=== PATIENT | male | born 1945 | race Caucasian/White ===

== ENCOUNTER 2017-10-30 10:25 | Emergency (ER) | payer MEDICARE, SELFPAY ==
[2017-10-30 10:31] VITALS: BP 105/67; PULSE 70; RESP 18; TEMP 36.4; O2SAT 96
--- NOTE | 2017-10-30 10:47 | DI.RAD.S_ITS ---
PROCEDURE: XR CHEST 1V INDICATIONS: 72 year-old male with chest pain. TECHNIQUE: One view of the chest was acquired. COMPARISON: [facility], CHEST 2 VIEW, 02/05/2017, 9:23. [facility], , ABDOMEN ACUTE SERIES, 02/16/2015, 17:48. [facility], CHEST 2 VIEW, 03/10/2010, 18:52. FINDINGS: Surgical changes and devices: Left chest wall single lead pacemaker is again noted. Lungs and pleura: No pleural effusions or pneumothorax. Lungs are clear. Mediastinum: Mediastinal contours appear normal. Heart size is normal given AP technique. Bones and chest wall: No suspicious bony lesions. Overlying soft tissues appear unremarkable. IMPRESSION: No acute cardiopulmonary disease. Dictated by: Eric Chadwick M.D. on 10/30/2017 at 11:30 Approved by: Eric Chadwick M.D. on 10/30/2017 at 11:31
[2017-10-30 11:33] VITALS: BP 111/70; PULSE 70; RESP 19; O2SAT 98
[2017-10-30 11:38] LABS: Add Manual Diff / Slide Review NO; Eosinophils Percent Auto 2.8 % (2-4); Hematocrit 43.5 % (41-53); Hemoglobin 14.9 g/dL (13.5-17.5); Lymphocytes Percent Auto 29.3 % (25-40); Mean Corpuscular HGB Conc 34.3 % (30-36); Mean Corpuscular Hemoglobin 31.8 PG (26-34); Mean Corpuscular Volume 92.8 fL (80-100); Monocytes Percent Auto 12.6 % (3-14); Neutrophils Absolute Auto 3100 /uL (3000-5900); Neutrophils Percent Auto 54.3 % (50-75); Platelet Count 135 X10^3/uL (150-400); Red Blood Cell Count 4.69 X10^6/uL (4.5-5.9); White Blood Cell Count 5.8 X10^3/uL (4.5-11.0)
[2017-10-30 11:44] LABS: INR 1.2 (0.9-1.3); Prothrombin Time 13.4 SECONDS (10.1-12.7)
[2017-10-30 11:46] LABS: PTT Partial Thromboplastin Tim 35 SECONDS (26.4-36.2)
[2017-10-30 11:49] LABS: Alanine Aminotransferase 25 IU/L (21-72); Albumin 4.1 g/dL (3.5-5.0); Albumin Globulin Ratio 1.3 (1.0-2.8); Alkaline Phosphatase 58 U/L (38-126); Aspartate Aminotransferase 30 IU/L (17-59); BUN Creatinine Ratio 21.4 (6-22); Bilirubin Total 0.7 mg/dL (0.2-1.3); Blood Urea Nitrogen 15 mg/dL (9-20); Calcium 9.3 mg/dL (8.4-10.2); Carbon Dioxide 24 mmol/L (22-32); Chloride 105 mmol/L (98-107); Creatine Kinase 82 U/L (55-170); Estimated Glomerular Filt Rate > 60.0 mL/min (>60); Globulin 3.1 g/dL (1.7-4.1); Glucose 97 mg/dL (80-110); HEMOLYSIS 75 (0-50); Lipase 65 U/L (23-300); Potassium 4.3 mmol/L (3.4-5.1); Sodium 141 mmol/L (137-145); Total Protein 7.2 g/dL (6.3-8.2)
[2017-10-30 12:00] LABS: Troponin I 0.014 ng/mL (0.01-0.034)
--- NOTE | 2017-10-30 12:40 | ED.CHESTPAIN ---
HPI - Chest Pain General Chief Complaint: Chest Pain Stated Complaint: CORNARY? Time Seen by Provider: 10/30/17 10:47 Source: patient Mode of arrival: ambulatory Limitations: no limitations History of Present Illness HPI narrative: Patient is a 72-year-old male who presents with chest pain. It started while cough walking. He said it lasted for about 10 min but did not stop until he stopped walking. He has not had recurrence of pain and when all across his chest. He denies any shortness of breath. He states he does have a pacemaker but is for atrial fibrillation. No known history of coronary artery disease. MD complaint: chest pain Onset (ago): minute(s) Duration: now resolved Onset: during exertion Relieving factors: rest Exacerbating factors: exertion Related Data Home Medications Medication Instructions Recorded Confirmed levothyroxine 150 mcg PO QAM #0 02/05/17 10/30/17 Eliquis 1 tab PO BID 10/30/17 10/30/17 citalopram 40 mg PO DAILY 10/30/17 10/30/17 omeprazole 20 mg PO BID 10/30/17 10/30/17 sucralfate 1 gm PO ACHS PRN 10/30/17 10/30/17 Previous Rx's Medication Instructions Recorded amlodipine 10 mg PO QDAY #90 tab 05/05/17 bupropion HCl [Wellbutrin XL] 150 mg PO QDAY #30 tab 05/05/17 lisinopril 40 mg PO BID #60 tab 05/05/17 Review of Systems Review of Systems All systems reviewed & are unremarkable except as noted in HPI and below Constitutional Denies chills, Denies fever(s), Denies lethargy and Denies weakness Cardiovascular Denies chest pain, Denies irregular heart rhythm, Denies lightheadedness, Denies palpitations, Denies dyspnea, Denies dyspnea on exertion and Denies orthopnea Respiratory Denies cough, Denies dyspnea, Denies dyspnea on exertion and Denies wheezing Gastrointestinal Gastrointestinal: Denies abdominal pain, Denies change in bowel habits, Denies diarrhea, Denies nausea and Denies vomiting Integumentary/Breasts Denies pruritus, Denies erythema, Denies rash and Denies wounds Neurologic Denies weakness Endocrine Denies palpitations Allergic/Immunologic Denies wheezing PFSH Surgical History History of vasectomy Presence of cardiac pacemaker Status post appendectomy Status post cholecystectomy Social History Smoking Status: Former smoker Exam Initial Vital Signs Initial Vital Signs: Vital Signs Temperature 97.5 F L 10/30/17 10:31 Pulse Rate 70 10/30/17 10:31 Respiratory Rate 18 10/30/17 10:31 Blood Pressure 105/67 10/30/17 10:31 Pulse Oximetry 96 10/30/17 10:31 Const General: cooperative and well developed Nutritional Appearance: well nourished Orientation: alert, awake, oriented x3 and not confused Chest Chest: normal inspection of the chest Resp Effort & Inspection: normal respiratory effort, able to speak in complete sentences, no respiratory distress and no use of accessory muscles Auscultation: clear to auscultation bilaterally, no rales, no rhonchi and no wheezes Cardio Rate: regular rate Rhythm: regular rhythm Heart Sounds: no click, no gallops, no murmurs and no rubs Pulses: normal peripheral pulses Skin General: no rashes or lesions noted, No jaundice and No petechiae Neuro General: alert, oriented x3, gait normal and no focal motor deficits Speech: speech normal Scores HEART Score Heart Score history: Moderately Suspicious Heart Score EKG: Normal Heart Score Age: > or = 65 years old Heart Score risk factors: 1-2 risk factors Heart Score troponin: < or = to normal limit Heart Score Total: 4 Course Orders Ordered: ED Orders 10/30/17 10:47 XR chest 1V Stat EKG-12 Lead Stat 10/30/17 11:25 B Type Natriuretic Peptide Stat Complete Blood Count AUTO DIFF Stat Comprehensive Metabolic Panel Stat Lipase Stat Partial Thromboplastin Time Stat Prothrombin Time INR Stat Troponin with CK Cardiac Panel Stat 10/30/17 14:00 Troponin I Stat Vital Signs - 8 hr 10/30/17 10:31 10/30/17 11:33 10/30/17 13:00 Temperature 97.5 F L Pulse Rate 70 70 70 Respiratory Rate 18 19 20 Blood Pressure 105/67 Blood Pressure [Right Arm] 111/70 108/76 Pulse Oximetry 96 98 97 10/30/17 13:50 10/30/17 14:50 10/30/17 15:11 Temperature Pulse Rate 70 70 70 Respiratory Rate 69 H 22 16 Blood Pressure Blood Pressure [Right Arm] 113/76 129/81 H 103/78 Pulse Oximetry 99 97 96 MDM - Chest Pain Lab Data Attestation: I reviewed the patient's lab results. Result diagrams: 10/30/17 11:25 10/30/17 11:25 Lab Results 10/30/17 10/30/17 10/30/17 Range/Units 11:25 11:25 11:25 WBC 5.8 (4.5-11.0) X10^3/uL RBC 4.69 (4.5-5.9) X10^6/uL Hgb 14.9 (13.5-17.5) g/dL Hct 43.5 (41-53) % MCV 92.8 (80-100) fL MCH 31.8 (26-34) PG MCHC 34.3 (30-36) % RDW 14.0 (11.6-14.8) % Plt Count 135 L (150-400) X10^3/uL Neut % (Auto) 54.3 (50-75) % Lymph % (Auto) 29.3 (25-40) % [place] % (Auto) 12.6 (3-14) % Eos % (Auto) 2.8 (2-4) % Baso % (Auto) 1.0 (0-2) % Neut # (Auto) 3100 (4045-7555) /uL PT 13.4 H (10.1-12.7) SECONDS INR 1.2 (0.9-1.3) APTT 35 (26.4-36.2) SECONDS Sodium 141 (137-145) mmol/L Potassium 4.3 (3.4-5.1) mmol/L Chloride 105 (98-107) mmol/L Carbon Dioxide 24 (22-32) mmol/L BUN 15 (9-20) mg/dL Creatinine 0.70 (0.66-1.25) mg/dL Estimated GFR > 60.0 (>60) mL/min BUN/Creatinine Ratio 21.4 (6-22) Glucose 97 (80-110) mg/dL Calcium 9.3 (8.4-10.2) mg/dL Total Bilirubin 0.7 (0.2-1.3) mg/dL AST 30 (17-59) IU/L ALT 25 (21-72) IU/L Alkaline Phosphatase 58 (38-126) U/L Total Creatine Kinase 82 (55-170) U/L Troponin I 0.014 (0.01-0.034) ng/mL B-Natriuretic Peptide 51.4 (<100) Total Protein 7.2 (6.3-8.2) g/dL Albumin 4.1 (3.5-5.0) g/dL Globulin 3.1 (1.7-4.1) g/dL Albumin/Globulin Ratio 1.3 (1.0-2.8) Lipase 65 (23-300) U/L 10/30/17 Range/Units 14:00 WBC (4.5-11.0) X10^3/uL RBC (4.5-5.9) X10^6/uL Hgb (13.5-17.5) g/dL Hct (41-53) % MCV (80-100) fL MCH (26-34) PG MCHC (30-36) % RDW (11.6-14.8) % Plt Count (150-400) X10^3/uL Neut % (Auto) (50-75) % Lymph % (Auto) (25-40) % [place] % (Auto) (3-14) % Eos % (Auto) (2-4) % Baso % (Auto) (0-2) % Neut # (Auto) (3699-1660) /uL PT (10.1-12.7) SECONDS INR (0.9-1.3) APTT (26.4-36.2) SECONDS Sodium (137-145) mmol/L Potassium (3.4-5.1) mmol/L Chloride (98-107) mmol/L Carbon Dioxide (22-32) mmol/L BUN (9-20) mg/dL Creatinine (0.66-1.25) mg/dL Estimated GFR (>60) mL/min BUN/Creatinine Ratio (6-22) Glucose (80-110) mg/dL Calcium (8.4-10.2) mg/dL Total Bilirubin (0.2-1.3) mg/dL AST (17-59) IU/L ALT (21-72) IU/L Alkaline Phosphatase (38-126) U/L Total Creatine Kinase (55-170) U/L Troponin I 0.020 (0.01-0.034) ng/mL B-Natriuretic Peptide (<100) Total Protein (6.3-8.2) g/dL Albumin (3.5-5.0) g/dL Globulin (1.7-4.1) g/dL Albumin/Globulin Ratio (1.0-2.8) Lipase (23-300) U/L ECG Data Attestation: I personally reviewed and interpreted this ECG as follows: Prior ECG tracings: available for review Interpretation: Paced rhythm rate [address] changes similar to previous EKG MDM Narrative Medical decision making narrative: I have called and spoken with patient's primary care provider. Recommend outpatient stress test. He will work on arranging that and will follow up with patient sometime next week. Patient is instructed that if you should have any return or worsening chest pain her to return to the ED immediately. He understands this. Discharge Plan Departure Patient Disposition: Home, Self-Care Clinical Impression: Atypical chest pain Discharge Date/Time: 10/30/17 15:31 Interventions: ED Discharge Assessment Last Done: 10/30/17 15:31 Instructions: DI for Atypical Chest Pain Activity Restrictions/Additional Instructions: *You have been diagnosed with atypical chest pain *What to do: He will likely need further cardiac testing and evaluation please speak with your primary care provider about this. He has been notified. *Continue to take medications as directed *Follow up with your primary care provider in 2-3 days *Return to ER if you should have increasing chest pain recurrent chest pain, worsening shortness of breath or any new, worsening or concerning symptoms Prescriptions: No Action levothyroxine 150 MCG tablet 150 mcg PO QAM Qty: 0 RF: 0 amlodipine 10 MG tablet 10 mg PO QDAY Qty: 90 RF: 3 lisinopril 40 MG tablet 40 mg PO BID Qty: 60 RF: 3 bupropion HCl [Wellbutrin XL] 150 MG tablet extended release 24 hr 150 mg PO QDAY Qty: 30 RF: 3 citalopram 40 mg tablet 40 mg PO DAILY RF: 0 omeprazole 20 mg capsule,delayed release(DR/EC) 20 mg PO BID RF: 0 Eliquis 1 tab PO BID RF: 0 sucralfate 1 GM tablet 1 gm PO ACHS PRN (Reason: STOMACH) RF: 0 Referrals: Ildefonso Whyte MD [Primary Care Provider] -
[2017-10-30 12:44] LABS: B Type Natriuretic Peptide 51.4 (<100)
[2017-10-30 13:00] VITALS: BP 108/76; PULSE 70; RESP 20; O2SAT 97
[2017-10-30 13:50] VITALS: BP 113/76; PULSE 70; RESP 69; O2SAT 99
[2017-10-30 14:50] VITALS: BP 129/81; PULSE 70; RESP 22; O2SAT 97
[2017-10-30 15:11] VITALS: BP 103/78; PULSE 70; RESP 16; O2SAT 96
== END 2017-10-30 15:31 | disposition home or self-care (01) ==
PROVIDERS: Emergency Provider Emergency Medicine; PCP Internal Medicine
DX: R07.89 Other chest pain (principal)
CPT/HCPCS: 36415; 36591; 71045; 80053; 82550; 82553; 83690; 83880; 84484; 85025; 85610; 85730; 93005; 99283; 99285

== ENCOUNTER → 2017-11-06 14:08 | Outpatient (CLI) | payer MEDICARE, SELFPAY ==
--- NOTE | 2017-11-06 15:22 | PM.TREADMILL ---
Cardiac Stress Test Report Referral & Results Date Patient Seen: 11/06/17 Time Patient Seen: 15:23 Requesting provider: Ildefonso Whyte Indication: Chest pain, ER visit Rest EC% paced rhythm with a left bundle branch block pattern Procedure Note: After both written and verbal informed consent the patient had an IV started by the diagnostic imaging RN and then was hooked up to the treadmill monitoring system. The patient was then injected with the Dorothy scan material. The Cardiolite was then immediately administered. Additional 3 min is spent monitoring the patient. The patient had a normal response to all infused materials. Impression: Normal response to infuse materials. Perfusion imaging will be reported separately. Please note: Actual ECG tracings can be found in the PACS system.
--- NOTE | 2017-11-09 15:50 | DI.NM.S_ITS ---
DATE OF SERVICE: 11/06/2017 PROCEDURE: Pharmacological perfusion study. INDICATIONS: Chest pain with underlying atrial fibrillation, permanent pacemaker. RADIOPHARMACEUTICAL: 26.3 mCi technetium-99m Myoview IV was injected at stress and 24.9 mCi technetium-99m Myoview IV was injected at rest. CARDIAC STRESS: Patient received IV Lexiscan as per protocol under the supervision of an attending staff. Patient remained hemodynamically stable. No significant symptoms were reported. Baseline EKG revealed ventricular-pace rhythm. Stress EKG did not reveal any new ischemic changes or new significant arrhythmias. RAW DATA: There was increased subdiaphragmatic activity. GATED STUDY: Resting stress LV ejection fraction about 72%. I don't see any significant wall motion abnormalities. No transient ischemic dilatation. TID ratio is 0.98, which is within normal limits. Resting LV end-diastolic volume is 119 mL. Lung/heart ratio is 0.42. MYOCARDIAL PERFUSION SCAN: Stress supine, resting supine, and stress prone images were compared to each other. Resting supine images revealed moderate- sized severely decreased perfusion of distal inferior wall extending into the inferoapex as well as mildly decreased perfusion of distal anterolateral and distal inferolateral wall. During stress supine and stress prone images, in addition to resting defect, there was new moderate-sized moderately severe reversible defect of the base-to-mid inferior wall as well. CONCLUSION: This is an abnormal myocardial perfusion study with moderate-sized severe reversible ischemia of base-to-mid inferior wall as well as fixed defect involving the distal inferior wall, inferoapex extending into the distal anterolateral and distal inferolateral wall. There is a possibility of distal inferior wall, inferoapex, and distal anterolateral and inferolateral infarction with reversible ischemia of base-to-mid inferior wall. Patient had perfusion study in 12/2000. At that time there was very slight decreased perfusion of proximal inferior wall. Since then, patient has had pacemaker. As wall motion evaluation did not reveal any significant abnormalities in the inferior wall, and overall left ventricular (LV) function preserved. Some of the fixed defects could be due to some diaphragmatic tissue attenuation artifact. However, reversible defect in base-to-mid inferior painter raises significant suspicion for underlying coronary artery disease as well. Patient's weight is 245 pounds. Likelihood that we are dealing with right coronary artery disease based on above description is high. Reversible defect is a new finding. Will recommend cardiology evaluation and left heart catheterization if patient is having recurrent anginal symptoms. Dr. Whyte office is informed. Thong, Bruce - BJORN/eliceo/ doc#: [id number]/job#: [id number] dd: 11/09/2017 12:55:00 dt: 11/09/2017 15:22:00 DICTATING MD/COPIES TO: Elvis Trent MD; Ildefonso Whyte MD COPIES MNE: ALFREDA RAYA
== END ==
PROVIDERS: PCP Internal Medicine; Visit Provider Internal Medicine
DX: R07.9 Chest pain, unspecified (principal); I48.91 Unspecified atrial fibrillation; Z95.0 Presence of cardiac pacemaker; I25.9 Chronic ischemic heart disease, unspecified
CPT/HCPCS: 78452; 93016; 93017; 93018; A9502; J2785

== ENCOUNTER 2018-05-03 10:00 | Outpatient (RCR) | payer OTHER, SELFPAY ==
[2018-01-19 09:21] VITALS: BP 116/80; BP 118/60; O2SAT 94; BMI 33.9
[2018-02-16 15:20] VITALS: BP 106/72; RESP 16
[2018-03-15 11:50] VITALS: BP 110/70
[2018-04-14 08:00] VITALS: BP 112/82; RESP 16
[2018-05-06 07:40] VITALS: BP 114/76
== END 2018-05-13 09:40 ==
LOC: CAR 10:00
PROVIDERS: PCP Internal Medicine; Visit Provider Internal Medicine
DX: I25.118 Atherosclerotic heart disease of native coronary artery with other forms of angina pectoris (principal)
CPT/HCPCS: 93798

== ENCOUNTER 2019-02-21 20:22 | Emergency (ER) | payer MEDICARE, SELFPAY ==
[2019-02-21 20:24] VITALS: BP 133/80; PULSE 83; RESP 14; TEMP 36.5; O2SAT 97
[2019-02-21 20:49] LABS: Amorphous Sediment Urine 1+; Bacteria Urine Few (2-10); Culture Indicated Urine Specimen Cultured; RBC Urine >100/HPF (0-5/HPF); WBC Urine 5-10/HPF (0-5/HPF)
--- NOTE | 2019-02-21 21:11 | ED_ITS ---
HPI - Abdominal Pain General Chief Complaint: Abdominal Pain Stated Complaint: KIDNEY STONES Time Seen by Provider: 02/21/19 21:03 Source: patient Mode of arrival: Ambulatory Limitations: no limitations History of Present Illness HPI narrative: Patient is a 73-year-old male here for evaluation of bilateral lower abdominal pain. He states that for the past couple days he has had dysuria. Denies any flank pain. Does have a history of a kidney stone but that was approximately 20 years ago. Denies any fevers. Is on Eliquis. No blood in his urine. Patient states his symptoms is bilateral lower abdomen. Is colicky in nature however when the symptoms are at its highest he does state that is worse with palpation and movement. Related Data Home Medications Medication Instructions Recorded Confirmed levothyroxine 150 mcg PO QAM #0 02/05/17 05/31/18 citalopram 40 mg PO DAILY 10/30/17 05/31/18 omeprazole 20 mg PO BID 10/30/17 05/31/18 clopidogrel 75 mg tablet 75 mg PO DAILY 03/22/18 05/31/18 Eliquis 5 mg PO BID 05/31/18 05/31/18 Previous Rx's Medication Instructions Recorded amlodipine 10 mg PO QDAY #90 tab 05/05/17 bupropion HCl [Wellbutrin XL] 150 mg PO QDAY #30 tab 05/05/17 lisinopril 40 mg tablet 40 mg PO DAILY #90 tab 03/22/18 simvastatin 20 mg tablet 20 mg PO QPM #30 tab 04/12/18 tamsulosin [Flomax] 0.4 mg PO DAILY #30 cap 02/21/19 Allergies Allergy/AdvReac Type Severity Reaction Status Date / Time atorvastatin AdvReac Intermediate myalgia Verified 02/21/19 20:27 rosuvastatin [From Crestor] AdvReac Intermediate myalgia Verified 02/21/19 20:27 Review of Systems Constitutional Constitutional: Denies fever(s) Cardiovascular Cardiovascular: Denies chest pain and Denies dyspnea Respiratory Respiratory: Denies dyspnea Gastrointestinal Gastrointestinal: Reports abdominal pain, Denies nausea and Denies vomiting Genitourinary Genitourinary: Reports dysuria, Denies flank pain, Denies testicular mass, Denie s testicular pain, Reports urinary frequency and Reports urinary hesitancy Musculoskeletal Musculoskeletal: Denies myalgias and Denies arthralgias Integumentary/Breasts Skin/Breast: Denies lesions and Denies rash Neurologic Neurologic: Denies behavioral changes Psychiatric Psychiatric: Denies behavioral changes Hematologic/Lymphatic Hematologic/Lymphatic: Denies easy bleeding and Denies easy bruising [facility] Medical History Acquired hypothyroidism (Chronic 08/09/12) Cardiac arrhythmia (Chronic) Central retinal artery occlusion of left eye (Inactive 02/27/17) Chronic atrial fibrillation (Chronic 02/22/15) Colon polyps (Chronic) Coronary artery disease (Chronic ~10/2017) Essential hypertension (Chronic 02/27/17) Gastroesophageal reflux disease without esophagitis (Chronic 08/09/12) History of permanent cardiac pacemaker placement (Inactive 02/22/15) Social History marital status: number of children: 3 household members: spouse lives independently: Yes caregiver/support person: No housing: house pets and animals: Yes education level: college (2 years) occupational status: other (Retired) 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[employer]: [employer] travel history: recent ([place]) and over 6 months ago ([place]) leisure activities: other ([employer]ilting) Smoking Status: Former smoker Tobacco: How many years used: 32 Smokeless tobacco user: other (Cigarettes, Marijuana) quit status: quit date established (Cigarettes 1985, Marijuana 1982) second hand exposure: No alcohol intake: former substance use type: does not use Exam Initial Vital Signs Initial Vital Signs: Vital Signs Temperature 97.7 F 02/21/19 20:24 Pulse Rate 83 02/21/19 20:24 Respiratory Rate 14 02/21/19 20:24 Blood Pressure 133/80 02/21/19 20:24 Pulse Oximetry 97 02/21/19 20:24 Const General: cooperative, comfortable and well developed Orientation: alert, awake and oriented x3 HENMT Head: normal to inspection and normocephalic Resp Effort & Inspection: normal respiratory effort Auscultation: clear to auscultation bilaterally Cardio Rate: regular rate Rhythm: regular rhythm GI Inspection: non-distended Palpation: soft, No firm and No tender Skin Lesions: no lesions Rashes: no rashes Neuro General: alert, awake and oriented x3 Cognition: normal cognition Speech: speech normal Gait: normal gait Motor: muscle tone normal throughout Extrem General: capillary refill normal Psych Appearance: grossly normal and well kempt Course Orders Ordered: ED Orders 02/21/19 18:35 Urine Culture Stat Urine Microscopic Stat 02/21/19 21:12 CT abdomen pelvis w con Stat 02/21/19 21:20 Complete Blood Count AUTO DIFF Stat Comprehensive Metabolic Panel Stat Lipase Stat Discontinued Medications Sodium Chloride (Normal Saline 0.9%) 1,000 mls @ 1,000 mls/hr IV BOLUS ONE Stop: 02/21/19 22:11 Last Infusion: 02/21/19 23:31 Dose: 0 mls/hr Documented by: Admin: 02/21/19 22:00 Dose: 1,000 mls/hr Documented by: NUSRAT Vital Signs Vital signs: Vital Signs - 8 hr 02/21/19 20:24 02/21/19 23:44 Temperature 97.7 F 97.9 F Pulse Rate 83 65 Respiratory Rate 14 14 Blood Pressure 133/80 127/71 Pulse Oximetry 97 MDM - Abdominal Pain Lab Data Attestation: I reviewed the patient's lab results. Result diagrams: 02/21/19 21:20 02/21/19 21:20 Labs: Lab Results 02/21/19 02/21/19 02/21/19 Range/Units 18:35 21:20 21:20 WBC 7.6 (4.5-11.0) X10^3/uL RBC 4.53 (4.5-5.9) X10^6/uL Hgb 14.5 (13.5-17.5) g/dL Hct 42.3 (41-53) % MCV 93.5 (80-100) fL MCH 32.0 (26-34) PG MCHC 34.2 (30-36) % RDW 13.4 (11.6-14.8) % Plt Count 145 L (150-400) X10^3/uL Neut % (Auto) 74.1 (50-75) % Lymph % (Auto) 15.4 L (25-40) % [place] % (Auto) 8.2 (3-14) % Eos % (Auto) 1.6 L (2-4) % Baso % (Auto) 0.7 (0-2) % Neut # (Auto) 5700 (7626-9331) /uL Lymph # (Auto) 1200 (6973-5801) /uL [place] # (Auto) 600 (0-900) /uL Eos # (Auto) 100 (0-450) /uL Baso # (Auto) 100 (0-100) /uL Sodium 141 (137-145) mmol/L Potassium 4.2 (3.4-5.1) mmol/L Chloride 105 (98-107) mmol/L Carbon Dioxide 28 (22-32) mmol/L BUN 17 (9-20) mg/dL Creatinine 0.80 (0.66-1.25) mg/dL Estimated GFR > 60.0 (>60) mL/min BUN/Creatinine Ratio 21.3 (6-22) Glucose 100 (80-110) mg/dL Calcium 9.2 (8.4-10.2) mg/dL Total Bilirubin 0.5 (0.2-1.3) mg/dL AST 35 (17-59) IU/L ALT 25 (21-72) IU/L Alkaline Phosphatase 60 (38-126) U/L Total Protein 7.5 (6.3-8.2) g/dL Albumin 4.3 (3.5-5.0) g/dL Globulin 3.2 (1.7-4.1) g/dL Albumin/Globulin Ratio 1.3 (1.0-2.8) Lipase 39 (23-300) U/L Urine RBC >100/hpf (0-5/HPF) Urine WBC 5-10/hpf H (0-5/HPF) Amorphous Sediment 1+ Urine Bacteria Few (2-10) H (None) Ur Culture Indicated? Specimen cultured Point of care testing: Urine Dip Bedside Urine Glucose Negative Bedside Urine Bilirubin - Negative Bedside Urine Ketone - Negative Urine Specific [place] 1.025 Bedside Urine Occult Blood +++ Bedside Urine pH 5.0 Bedside Urine Protein + 30 Bedside Urine Urobilinogen +/- 1mg Bedside Urine Nitrite - Negative Bedside Urine Leukocytes + [address] scan - abdomen: Radiologist's impression: [address] [address] [address] Scan Report Signed Patient: Chetan Benito RMR#: [id number] : 8Acct:[id number] Age/Sex: 73 / MDate of Service: 02/21/19 Loc: ED Accession Number: [id number] Procedure: CT abdomen pelvis w con Ordering Provider: Valerio Hannah D.O. PROCEDURE: CT ABDOMEN PELVIS W CON INDICATIONS: Bilateral lower abdominal pain TECHNIQUE: After the administration of intravenous contrast, 5 mm thick sections acquired from the diaphragm to the symphysis. 5 mm coronal and sagittal reformats were acquired. For radiation dose reduction, the following was used: automated exposure control, adjustment of mA and/or kV according to patient size. COMPARISON: [facility], CT, ABDOMEN/PELVIS WITH CONTRAST, 12/30/2008, 11:55. FINDINGS: Image quality: Excellent. ABDOMEN: Lung bases: Mild bibasilar dependent atelectasis is seen. Heart size is enlarged, no pericardial effusion. Solid organs: Liver is normal in size and enhancement. Gallbladder is surgically absent. Biliary system is non dilated. Pancreas enhances normally. Spleen is normal in size and enhancement. No adrenal nodules. Kidneys demonstrate normal size and enhancement, without hydronephrosis. Peritoneum and bowel: There is no evidence of bowel obstruction. No abnormal stomach or small bowel wall thickening. No abnormal colonic wall thickening. No mesenteric fat stranding. Mild sigmoid diverticulosis is seen, no evidence of acute diverticulitis. No free fluid or free air. Nodes and vessels: No retroperitoneal or mesenteric adenopathy by size criteria. Aorta and inferior vena cava are normal in size. Miscellaneous: No ventral hernias. PELVIS: Genitourinary: Diffuse bladder wall thickening is seen with slightly lobulated contour. No discrete bladder wall mass is seen. Enlarged prostate gland is noted with mass effect on floor of urinary bladder. Miscellaneous: No inguinal lymphadenopathy. Small bilateral inguinal hernia is seen containing fat only. Bones: No suspicious bony lesions. No vertebral body compression fractures. Degenerative disc disease throughout lumbar spine is seen. IMPRESSION: 1. Diffuse bladder wall thickening, which may represent chronic urinary outlet obstruction. Infectious or inflammatory cystitis cannot be excluded. Enlarged prostate gland with mass effect on floor of urinary bladder. No renal stone or hydronephrosis. 2. No bowel obstruction. No evidence of acute appendicitis or diverticulitis. No free fluid or free air. 3. Cardiomegaly, no pericardial effusion. Bibasilar dependent atelectasis. Dictated by: Kaden Patiño M.D. on 02/21/2019 at 22:14 Approved by: Kaden Patiño M.D. on 02/21/2019 at 22:18 MDM Narrative Medical decision making narrative: CT scan of the abdomen shows no signs of kidney stones. Does show a thickened bladder wall without definitive mass. his urinalysis does have blood however no signs of infection. Patient did urinate 300 cc of urine. He stated that that was the best he has use urination he has had over the past couple days. We did discuss the CT scan findings. There is no signs of infection we will hold on any antibiotics. He does have an enlarged prostate. Will send home on alpha-flo for this. Did inform him that he should to with his primary doctor about referral to see Urology. We did discuss placing a Lee here in the emergency department to make sure that he has no residual urine after urinated however the patient declined this. He was given return precautions and follow-up instructions. He expressed understanding and agreement with plan. Discharge Plan Departure Patient Disposition: Home Clinical Impression: Dysuria, Bladder wall thickening Hematuria Qualifiers: Hematuria type: asymptomatic microscopic Qualified Code(s): R31.21 - Asymptomatic microscopic hematuria Discharge Date/Time: 02/21/19 23:44 Instructions: Benign Prostatic Hyperplasia, DI for Hematuria Activity Restrictions/Additional Instructions: Recommend that you start taking the medication that you were given a prescript ion for this evening as directed. Contact your primary provider tomorrow for follow-up to discuss the indications for referral to see Urology. Return to the emergency department for any new or worsening symptoms Prescriptions: New tamsulosin [Flomax] 0.4 mg capsule 0.4 mg PO DAILY Qty: 30 RF: 0 No Action levothyroxine 150 MCG tablet 150 mcg PO QAM Qty: 0 RF: 0 amlodipine 10 MG tablet 10 mg PO QDAY Qty: 90 RF: 3 bupropion HCl [Wellbutrin XL] 150 MG tablet extended release 24 hr 150 mg PO QDAY Qty: 30 RF: 3 simvastatin 20 mg tablet 20 mg PO QPM Qty: 30 RF: 6 Hold Instructions: myalgia clopidogrel [Plavix] 75 mg tablet 75 mg PO DAILY RF: 0 lisinopril 40 mg tablet 40 mg PO DAILY Qty: 90 RF: 3 Eliquis 5 mg PO BID RF: 0 citalopram 40 mg tablet 40 mg PO DAILY RF: 0 omeprazole 20 mg capsule,delayed release(DR/EC) 20 mg PO BID RF: 0 Referrals: Ildefonso Whyte MD [Primary Care Provider] -
[2019-02-21 21:29] LABS: Add Manual Diff / Slide Review NO; Basophils Absolute Auto 100 /uL (0-100); Basophils Percent Auto 0.7 % (0-2); Eosinophils Absolute Auto 100 /uL (0-450); Eosinophils Percent Auto 1.6 % (2-4); Hematocrit 42.3 % (41-53); Hemoglobin 14.5 g/dL (13.5-17.5); Lymphocytes Absolute Auto 1200 /uL (1100-4500); Lymphocytes Percent Auto 15.4 % (25-40); Mean Corpuscular HGB Conc 34.2 % (30-36); Mean Corpuscular Volume 93.5 fL (80-100); Monocytes Absolute Auto 600 /uL (0-900); Monocytes Percent Auto 8.2 % (3-14); Neutrophils Absolute Auto 5700 /uL (1500-7000); Neutrophils Percent Auto 74.1 % (50-75); Platelet Count 145 X10^3/uL (150-400); Red Blood Cell Count 4.53 X10^6/uL (4.5-5.9); Red Cell Distribution Width 13.4 % (11.6-14.8); White Blood Cell Count 7.6 X10^3/uL (4.5-11.0)
[2019-02-21 21:44] LABS: Alanine Aminotransferase 25 IU/L (21-72); Albumin 4.3 g/dL (3.5-5.0); Albumin Globulin Ratio 1.3 (1.0-2.8); Alkaline Phosphatase 60 U/L (38-126); Aspartate Aminotransferase 35 IU/L (17-59); BUN Creatinine Ratio 21.3 (6-22); Bilirubin Total 0.5 mg/dL (0.2-1.3); Blood Urea Nitrogen 17 mg/dL (9-20); Calcium 9.2 mg/dL (8.4-10.2); Carbon Dioxide 28 mmol/L (22-32); Chloride 105 mmol/L (98-107); Estimated Glomerular Filt Rate > 60.0 mL/min (>60); Globulin 3.2 g/dL (1.7-4.1); Glucose 100 mg/dL (80-110); HEMOLYSIS 36 (0-50); Lipase 39 U/L (23-300); Potassium 4.2 mmol/L (3.4-5.1); Sodium 141 mmol/L (137-145); Total Protein 7.5 g/dL (6.3-8.2)
[2019-02-21] MEDS: SODIUM CHLORIDE 0.9% 1,000 ML 1000 ML IV (22:00)
[2019-02-21 23:44] VITALS: BP 127/71; PULSE 65; RESP 14; TEMP 36.6
== END 2019-02-21 23:44 | disposition home or self-care (01) ==
PROVIDERS: Emergency Provider Emergency Medicine; PCP Internal Medicine
DX: R30.0 Dysuria (principal); R31.21 Asymptomatic microscopic hematuria
CPT/HCPCS: 36415; 51798; 74177; 80053; 81003; 81015; 83690; 85025; 87086; 96360; 96361; 99284; 99285

== ENCOUNTER 2020-11-10 13:52 | Emergency (ER) | payer MEDICARE, SELFPAY ==
[2020-11-10 14:05] VITALS: BP 150/85; PULSE 83; RESP 22; TEMP 36.8; O2SAT 93; BMI 37.0
[2020-11-10 14:14] VITALS: PULSE 69; RESP 24; O2SAT 95
--- NOTE | 2020-11-10 14:22 | DI.RAD.S_ITS ---
PROCEDURE: XR CHEST 1V INDICATIONS: swelling b/l lower extremities. +cardiac hx. TECHNIQUE: One view of the chest was acquired. COMPARISON: [facility], CR, XR CHEST 1V, 10/30/2017, 11:07. FINDINGS: Surgical changes and devices: Pacemaker. Lungs and pleura: Lungs are clear. No pleural effusions or pneumothorax. Mediastinum: Mediastinal contours appear normal. Heart size is normal. Bones and chest wall: No suspicious bony lesions. Overlying soft tissues appear unremarkable. IMPRESSION: No evidence acute pulmonary process. Dictated by: Ari Sanchez M.D. on 11/10/2020 at 14:11 Approved by: Ari Sanchez M.D. on 11/10/2020 at 14:11
[2020-11-10 14:30] VITALS: PULSE 69; RESP 18; O2SAT 95
[2020-11-10] MEDS: ASPIRIN 81 MG CHEW TAB 324 MG PO (14:51)
[2020-11-10 14:57] LABS: Add Manual Diff / Slide Review NO; Basophils Absolute Auto 0 /uL (0-100); Basophils Percent Auto 0.3 % (0-2); Eosinophils Absolute Auto 200 /uL (0-450); Hematocrit 43.2 % (41-53); Hemoglobin 14.5 g/dL (13.5-17.5); Lymphocytes Absolute Auto 1500 /uL (1100-4500); Lymphocytes Percent Auto 27.8 % (25-40); Mean Corpuscular HGB Conc 33.6 % (30-36); Mean Corpuscular Hemoglobin 31.9 PG (26-34); Mean Corpuscular Volume 95.1 fL (80-100); Monocytes Absolute Auto 600 /uL (0-900); Monocytes Percent Auto 11.4 % (3-14); Neutrophils Absolute Auto 3200 /uL (1500-7000); Neutrophils Percent Auto 57.5 % (50-75); Platelet Count 122 X10^3/uL (150-400); Red Blood Cell Count 4.54 X10^6/uL (4.5-5.9); Red Cell Distribution Width 13.8 % (11.6-14.8); White Blood Cell Count 5.6 X10^3/uL (4.5-11.0)
[2020-11-10 15:00] VITALS: PULSE 69; RESP 21; O2SAT 94
--- NOTE | 2020-11-10 15:02 | ED.EXTPRO ---
HPI - Extremity Problem General Chief complaint: Extremity Problem,Nontraumatic Stated complaint: swelling in ankles and feet Time Seen by Provider: 11/10/20 14:22 Source: patient Mode of arrival: Ambulatory Limitations: no limitations History of Present Illness HPI Narrative: this is a pleasant 75-year-old male who comes with complaint of swelling in his ankles and feet for the last several days. Patient denies any lightheadedness, no passing out, no chest pain or pressure, no shortness of breath, he is not any swelling in his upper extremities. He has no nausea or vomiting, no diaphoresis. Patient has any new GI or urinary symptoms. Patient has not had any rashes or skin changes. Patient does take Eliquis, aspirin, atorvastatin as well as amlodipine, lisinopril and simvastatin as well as medications for mood/ anxiety. Patient has not had any new medication changes. He follows with Cardiology through the [facility]. He does please he may have had an echo in the last 6 months. Related Data Home Medications Medication Instructions Recorded Confirmed levothyroxine 150 mcg PO QAM #0 02/05/17 11/10/20 citalopram 40 mg PO DAILY 10/30/17 11/10/20 omeprazole 30 mg PO BID 10/30/17 11/10/20 clopidogrel 75 mg tablet 75 mg PO DAILY 03/22/18 11/10/20 apixaban [Eliquis] 5 mg PO BID 11/10/20 11/10/20 aspirin [Adult Aspirin EC Low 81 mg PO DAILY 11/10/20 11/10/20 Strength] atorvastatin 10 mg PO QPM 11/10/20 11/10/20 escitalopram oxalate 10 mg PO DAILY 11/10/20 11/10/20 Previous Rx's Medication Instructions Recorded amlodipine 10 mg PO QDAY #90 tab 05/05/17 bupropion HCl [Wellbutrin XL] 150 mg PO QDAY #30 tab 05/05/17 lisinopril 40 mg tablet 40 mg PO DAILY #90 tab 03/22/18 simvastatin 20 mg tablet 20 mg PO QPM #30 tab 04/12/18 tamsulosin [Flomax] 0.4 mg PO DAILY #30 cap 02/21/19 furosemide [Lasix] 40 mg PO DAILY #5 tab 11/10/20 Allergies Allergy/AdvReac Type Severity Reaction Status Date / Time atorvastatin AdvReac Intermediate myalgia Verified 11/10/20 16:56 rosuvastatin [From Crestor] AdvReac Intermediate myalgia Verified 11/10/20 16:56 Review of Systems Review of Systems ROS Unobtainable: All systems reviewed & are unremarkable except as noted in HPI and below Patient History Medical History Acquired hypothyroidism (08/09/12) Cardiac arrhythmia Central retinal artery occlusion of left eye (02/27/17) Chronic atrial fibrillation (02/22/15) Colon polyps Coronary artery disease (~10/2017) Essential hypertension (02/27/17) Gastroesophageal reflux disease without esophagitis (08/09/12) History of permanent cardiac pacemaker placement (02/22/15) Surgical History History of vasectomy Presence of cardiac pacemaker Status post appendectomy (~1950) Status post cholecystectomy Family History Father No problems noted. 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[employer]: [employer] travel history: recent ([place]) and over 6 months ago ([place]) leisure activities: other (Quilting) Smoking Status: Former smoker Tobacco: How many years used: 32 Smokeless tobacco user: other (Cigarettes, Marijuana) quit status: quit date established (Cigarettes 1985, Marijuana 1982) second hand exposure: No alcohol intake: former substance use type: does not use Smoking Status: Former smoker alcohol intake frequency: 0-2 drinks per day Substance Use Type: does not use Exam Narrative Exam Narrative: GENERAL: Alert and oriented x three, Male with BMI of 37 and mild distress. HEENT: Head normocephalic, atraumatic, EOMI, pupils reactive, face symmetric, moist mucous membranes NECK: Supple, full range of motion CARDIOVASCULAR: Regular rate and rhythm without murmurs, rubs or gallops. RESPIRATORY: Breath sounds equal bilaterally, no wheezes rales or rhonchi. ABDOMEN: Soft, nontender. Normoactive bowel sounds all 4 quadrants. No guarding or rebound, rigidity, no mass : No CVA tenderness EXTREMITIES: Normal range of motion, Bilateral lower extremity edema. Neurovascularly intact NEUROLOGICAL: Cranial nerves II through XII grossly intact. Moving all extremities SKIN: Warm, dry, no petechiae, no rashes or lesions. Initial Vital Signs Initial Vital Signs: Vital Signs Temperature 98.2 F 11/10/20 14:05 Pulse Rate 83 11/10/20 14:05 Respiratory Rate 22 11/10/20 14:05 Blood Pressure 150/85 H 11/10/20 14:05 Pulse Oximetry 93 11/10/20 14:05 Course Orders Ordered: ED Orders 11/10/20 14:10 EKG-12 Lead Routine 11/10/20 14:22 XR chest 1V Stat 11/10/20 14:45 Complete Blood Count AUTO DIFF Stat Comprehensive Metabolic Panel Stat Lipase Stat NT-proBNP (BNP-Adult 18+) Stat Partial Thromboplastin Time Stat Prothrombin Time INR Stat Troponin & CK Cardiac Panel Stat Discontinued Medications Aspirin (Aspirin 81 Mg Chew Tab) 324 mg PO NOW ONE Stop: 11/10/20 14:23 Last Admin: 11/10/20 14:51 Dose: 324 mg Documented by: DM Furosemide (Furosemide 40 Mg/4 Ml Vial) 40 mg IV NOW ONE Stop: 11/10/20 15:48 Last Admin: 11/10/20 15:59 Dose: Not Given Documented by: DM Vital Signs Vital signs: Vital Signs - 8 hr 11/10/20 14:05 11/10/20 14:14 11/10/20 14:30 Temperature 98.2 F Pulse Rate 83 69 69 Respiratory Rate 22 24 18 Blood Pressure 150/85 H Blood Pressure [Left Arm] Pulse Oximetry 93 95 95 11/10/20 15:00 11/10/20 15:30 11/10/20 16:10 Temperature Pulse Rate 69 69 69 Respiratory Rate 21 24 17 Blood Pressure 145/88 H Blood Pressure [Left Arm] 150/85 H Pulse Oximetry 94 94 97 MDM - Extremity (Nontraumatic) Lab Data Attestation: I reviewed the patient's lab results. Result diagrams: 11/10/20 14:45 11/10/20 14:45 Labs: Lab Results 11/10/20 11/10/20 11/10/20 Range/Units 14:45 14:45 14:45 WBC 5.6 (4.5-11.0) X10^3/uL RBC 4.54 (4.5-5.9) X10^6/uL Hgb 14.5 (13.5-17.5) g/dL Hct 43.2 (41-53) % MCV 95.1 (80-100) fL MCH 31.9 (26-34) PG MCHC 33.6 (30-36) % RDW 13.8 (11.6-14.8) % Plt Count 122 L (150-400) X10^3/uL Neut % (Auto) 57.5 (50-75) % Lymph % (Auto) 27.8 (25-40) % [place] % (Auto) 11.4 (3-14) % Eos % (Auto) 3.0 (2-4) % Baso % (Auto) 0.3 (0-2) % Neut # (Auto) 3200 (6282-5997) /uL Lymph # (Auto) 1500 (3145-9867) /uL [place] # (Auto) 600 (0-900) /uL Eos # (Auto) 200 (0-450) /uL Baso # (Auto) 0 (0-100) /uL PT 13.1 H (10.1-12.7) SECONDS INR 1.2 (0.9-1.3) APTT 33 (26.4-36.2) SECONDS Sodium 140 (137-145) mmol/L Potassium 4.1 (3.4-5.1) mmol/L Chloride 107 (98-107) mmol/L Carbon Dioxide 26 (22-32) mmol/L BUN 9 (9-20) mg/dL Creatinine 0.72 (0.66-1.25) mg/dL Estimated GFR > 60.0 (>60) mL/min BUN/Creatinine Ratio 12.5 (6-22) Glucose 97 (80-110) mg/dL Calcium 9.1 (8.4-10.2) mg/dL Total Bilirubin 0.6 (0.2-1.3) mg/dL AST 30 (17-59) IU/L ALT 21 (<50) IU/L Alkaline Phosphatase 60 (38-126) U/L Total Creatine Kinase 86 (55-170) U/L CK-MB (CK-2) TNP CK-MB (CK-2) Rel Index TNP Troponin I < 0.012 (0.01-0.034) ng/mL NT-Pro-B Natriuret Pep 569 H (<125) pg/mL Total Protein 7.5 (6.3-8.2) g/dL Albumin 4.2 (3.5-5.0) g/dL Globulin 3.3 (1.7-4.1) g/dL Albumin/Globulin Ratio 1.3 (1.0-2.8) Lipase 26 (23-300) U/L Imaging Data Chest x-ray: Radiologist's Impression: [address] [id number] ReportSigned Patient: Chetan Benito RMR#: [id number]: 8Acct:[id number]/Sex: 75 / MDate of Service: 11/10/20Loc: EDAccession Number: [id number] Procedure: XR chest 1V Ordering Provider: Jhoana Dowd D.O. PROCEDURE: XR CHEST 1V INDICATIONS: swelling b/l lower extremities. +cardiac hx. TECHNIQUE: One view of the chest was acquired. COMPARISON: [facility] , XR CHEST 1V, 10/30/2017, 11:07. FINDINGS: Surgical changes and devices: Pacemaker. Lungs and pleura: Lungs are clear. No pleural effusions or pneumothorax. Mediastinum: Mediastinal contours appear normal. Heart size is normal. Bones and chest wall: No suspicious bony lesions. Overlying soft tissues appear unremarkable. IMPRESSION: No evidence acute pulmonary process. Dictated by: Ari Sanchez M.D. on 11/10/2020 at 14:11 Approved by: Ari Sanchez M.D. on 11/10/2020 at 14:11 ECG Data Attestation EKG: I personally reviewed and interpreted this ECG as follows: Prior ECG tracings: available for review Interpretation: ventricularly paced rhythm rate of 70, QRS of 214 QTC 535. patient has prior from 10/30/2017. MDM Narrative Medical decision making narrative: this is a 75-year-old male who comes emergency department with increased swelling in his ankles and feet with no other additional symptoms. Patient does have an elevated BNP but no significant vital sign changes other than hypertension. troponin is negative. Chest x-ray does not show acute changes. Plan to start patient on a short course of Lasix and was asked to follow up with his primary care or place change roof bolter tumors easier to be seen and then he would likely benefit from echo as an outpatient. Discharge Plan Departure Patient Disposition: Home Clinical Impression: CHF (congestive heart failure) Instructions: DI for Heart Failure Activity Restrictions/Additional Instructions: Follow up with your physician this week for recheck. I would recommend taking Lasix daily for the next several days to see if this improves your symptoms. Please continue home medications as prescribed. Prescription sent to [facility] in [place] Please return for worsening swelling of the extremities, chest pain, shortness of breath, lightheadedness, fevers or other new or concerning symptoms. Prescriptions: New furosemide [Lasix] 40 mg tablet 40 mg PO DAILY Qty: 5 RF: 0 No Action levothyroxine 150 MCG tablet 150 mcg PO QAM Qty: 0 RF: 0 amlodipine 10 MG tablet 10 mg PO QDAY Qty: 90 RF: 3 bupropion HCl [Wellbutrin XL] 150 MG tablet extended release 24 hr 150 mg PO QDAY Qty: 30 RF: 3 simvastatin 20 mg tablet 20 mg PO QPM Qty: 30 RF: 6 Hold Instructions: myalgia clopidogrel [Plavix] 75 mg tablet 75 mg PO DAILY RF: 0 lisinopril 40 mg tablet 40 mg PO DAILY Qty: 90 RF: 3 tamsulosin [Flomax] 0.4 mg capsule 0.4 mg PO DAILY Qty: 30 RF: 0 atorvastatin 10 mg Tablet 10 mg PO QPM RF: 0 aspirin [Adult Aspirin EC Low Strength] 81 mg Tablet,Delayed Release (Dr/Ec) 81 mg PO DAILY RF: 0 escitalopram oxalate 10 mg Tablet 10 mg PO DAILY RF: 0 Eliquis 5 mg Tablet 5 mg PO BID RF: 0 citalopram 40 mg tablet 40 mg PO DAILY RF: 0 omeprazole 20 mg capsule,delayed release(DR/EC) 30 mg PO BID RF: 0 Referrals: Ildefonso Whyte MD [Primary Care Provider] -
[2020-11-10 15:05] LABS: INR 1.2 (0.9-1.3); Prothrombin Time 13.1 SECONDS (10.1-12.7)
[2020-11-10 15:07] LABS: PTT Partial Thromboplastin Tim 33 SECONDS (26.4-36.2)
[2020-11-10 15:09] LABS: Alanine Aminotransferase 21 IU/L (<50); Albumin 4.2 g/dL (3.5-5.0); Albumin Globulin Ratio 1.3 (1.0-2.8); Alkaline Phosphatase 60 U/L (38-126); Aspartate Aminotransferase 30 IU/L (17-59); BUN Creatinine Ratio 12.5 (6-22); Bilirubin Total 0.6 mg/dL (0.2-1.3); Blood Urea Nitrogen 9 mg/dL (9-20); Calcium 9.1 mg/dL (8.4-10.2); Carbon Dioxide 26 mmol/L (22-32); Chloride 107 mmol/L (98-107); Creatine Kinase 86 U/L (55-170); Estimated Glomerular Filt Rate > 60.0 mL/min (>60); Globulin 3.3 g/dL (1.7-4.1); Glucose 97 mg/dL (80-110); HEMOLYSIS 25 (0-50); Lipase 26 U/L (23-300); Potassium 4.1 mmol/L (3.4-5.1); Sodium 140 mmol/L (137-145); Total Protein 7.5 g/dL (6.3-8.2)
[2020-11-10 15:21] LABS: NT-proBNP (BNP-Adult 18+) 569 pg/mL (<125); Troponin I < 0.012 ng/mL (0.01-0.034)
[2020-11-10 15:30] VITALS: BP 145/88; PULSE 69; RESP 24; O2SAT 94
[2020-11-10 16:10] VITALS: BP 150/85; PULSE 69; RESP 17; O2SAT 97
== END 2020-11-10 16:15 | disposition home or self-care (01) ==
PROVIDERS: Emergency Provider Emergency Medicine; PCP Internal Medicine
DX: I50.9 Heart failure, unspecified (principal); I10 Essential (primary) hypertension; Z87.891 Personal history of nicotine dependence
CPT/HCPCS: 36415; 71045; 80053; 82550; 83690; 83880; 84484; 85025; 85610; 85730; 93005; 93010; 99284

== ENCOUNTER → 2021-03-29 12:46 | Outpatient (CLI) | payer MEDICARE, SELFPAY ==
[2021-03-29] MEDS: COVID-19 VACC #3, MRNA(MOD) 50 MCG/0.25 ML VIAL IM (12:52)
== END ==
PROVIDERS: PCP Internal Medicine; Visit Provider Internal Medicine
DX: Z23 Encounter for immunization (principal)
CPT/HCPCS: 0013A; 91301

== ENCOUNTER 2023-10-08 15:36 | Emergency (ER) | payer OTHER, SELFPAY ==
[2023-10-08 15:45] VITALS: BP 117/55; PULSE 70; RESP 16; TEMP 36.2; O2SAT 96; BMI 17.4
--- NOTE | 2023-10-08 16:36 | DI.RAD.S_ITS ---
PROCEDURE: XR CHEST 1V INDICATIONS: chest pain TECHNIQUE: One view of the chest was acquired. COMPARISON: [facility], CR, XR CHEST 1V, 11/10/2020, 14:27. FINDINGS: Surgical changes and devices: Left chest wall pacer lead is in the region of right ventricle. Lungs and pleura: Mild pulmonary vascular congestion is seen. No definite focal infiltrate. No pleural effusions or pneumothorax. Mediastinum: Mediastinal contours appear normal. Heart size is enlarged. Bones and chest wall: No suspicious bony lesions. Overlying soft tissues appear unremarkable. IMPRESSION: Cardiomegaly and mild congestion. No definite focal infiltrate. No pleural effusion or pneumothorax. Dictated by: Kaden Patiño M.D. on 10/08/2023 at 17:19 Approved by: Kaden Patiño M.D. on 10/08/2023 at 17:20
[2023-10-08 16:45] LABS: Influenza A - CEPHEID Flu A NEGATIVE (NEGATIVE); Influenza B - CEPHEID Flu B NEGATIVE (NEGATIVE); Respiratory Syncytial Virus Negative (Negative)
[2023-10-08 16:54] LABS: COVID-19 CEPHEID 4-PLEX PCR Negative (Negative)
[2023-10-08 17:00] LABS: Add Manual Diff / Slide Review NO; Basophils Absolute Auto 100 /uL (0-100); Basophils Percent Auto 1.1 % (0-2); Eosinophils Absolute Auto 100 /uL (0-450); Eosinophils Percent Auto 1.7 % (2-4); Hematocrit 41.6 % (41-53); Hemoglobin 14.2 g/dL (13.5-17.5); Lymphocytes Absolute Auto 1300 /uL (1100-4500); Lymphocytes Percent Auto 17.1 % (25-40); Mean Corpuscular Hemoglobin 31.9 PG (26-34); Mean Corpuscular Volume 93.7 fL (80-100); Monocytes Absolute Auto 1100 /uL (0-900); Monocytes Percent Auto 14.1 % (3-14); Neutrophils Absolute Auto 5100 /uL (1500-7000); Platelet Count 139 X10^3/uL (150-400); Red Blood Cell Count 4.44 X10^6/uL (4.5-5.9); Red Cell Distribution Width 14.4 % (11.6-14.8); White Blood Cell Count 7.7 X10^3/uL (4.5-11.0)
[2023-10-08 17:12] LABS: Alanine Aminotransferase 24 IU/L (<50); Albumin 4.3 g/dL (3.5-5.0); Albumin Globulin Ratio 1.3 (1.0-2.8); Alkaline Phosphatase 61 U/L (38-126); Aspartate Aminotransferase 37 IU/L (17-59); BUN Creatinine Ratio 24.8 (6-22); Bilirubin Total 1.9 mg/dL (0.2-1.3); Blood Urea Nitrogen 25 mg/dL (9-20); Calcium 8.6 mg/dL (8.4-10.2); Carbon Dioxide 27 mmol/L (22-32); Chloride 103 mmol/L (98-107); Creatine Kinase 244 U/L (55-170); Estimated Glomerular Filt Rate > 60 mL/min (>60); Globulin 3.3 g/dL (1.7-4.1); Glucose 110 mg/dL (80-110); HEMOLYSIS 31 (0-50); Lipase 20 U/L (23-300); Potassium 3.6 mmol/L (3.4-5.1); Sodium 137 mmol/L (137-145); Total Protein 7.6 g/dL (6.3-8.2)
[2023-10-08 17:24] LABS: NT-proBNP (BNP-Adult 18+) 599 pg/mL (<450); Troponin I < 0.012 ng/mL (0.01-0.034)
[2023-10-08 17:28] LABS: Procalcitonin 0.949 ng/mL (<0.5)
--- NOTE | 2023-10-08 18:14 | ED.GENADULT ---
HPI - General Adult General Chief complaint: Upper Respiratory Symptoms Stated complaint: spitting up blood Time Seen by Provider: 10/08/23 16:35 Source: patient Mode of arrival: Ambulatory History of Present Illness HPI narrative: Patient is a 78-year-old male who is here for evaluation of coughing up blood-tinged sputum. Patient states for the past couple days he has felt somewhat sick. Has had a cough. It is a productive cough. No fevers. No chest pain. Is on apixaban because of a pacemaker. No underlying lung pathology. No history of COPD. Does not wear oxygen home. Not currently on any antibiotics. He states that he has had a dry cough but then an underlying deep hacking cough for the past couple days. No chest pain. No lower extremity swelling. No blood in his urine. No easy bruising. No nosebleeds. Related Data Home Medications Medication Instructions Recorded Confirmed levothyroxine 150 mcg tablet 150 mcg PO QAM ##0 02/05/17 11/15/20 omeprazole 20 mg capsule,delayed 30 mg PO BID 10/30/17 11/15/20 release apixaban 5 mg tablet (Eliquis) 5 mg PO BID 11/10/20 11/15/20 aspirin 81 mg tablet,delayed 81 mg PO DAILY 11/10/20 11/15/20 release atorvastatin 10 mg tablet 10 mg PO QPM 11/10/20 11/15/20 escitalopram oxalate 10 mg tablet 10 mg PO DAILY 11/15/20 11/15/20 Previous Rx's Medication Instructions Recorded amlodipine 10 mg tablet 10 mg PO QDAY #90 tabs 05/05/17 bupropion HCl 150 mg 24 hr tablet, 150 mg PO QDAY #30 tabs 05/05/17 extended release (Wellbutrin XL) lisinopril 40 mg tablet 40 mg PO DAILY #90 tabs 03/22/18 benzonatate 100 mg capsule 100 mg PO BID-TID PRN cough #20 10/08/23 caps prednisone 20 mg tablet 20 mg PO DAILY #2 tabs 10/08/23 Allergies Allergy/AdvReac Type Severity Reaction Status Date / Time atorvastatin AdvReac Intermediate myalgia Verified 11/10/20 16:56 rosuvastatin [From Crestor] AdvReac Intermediate myalgia Verified 11/10/20 16:56 Review of Systems Review of Systems Narrative: See HPI Patient History Medical History Coronary artery disease (~10/2017) Colon polyps Cardiac arrhythmia Essential hypertension (02/27/17) Central retinal artery occlusion of left eye (02/27/17) History of permanent cardiac pacemaker placement (02/22/15) Chronic atrial fibrillation (02/22/15) Acquired hypothyroidism (08/09/12) Gastroesophageal reflux disease without esophagitis (08/09/12) Surgical History Status post cholecystectomy History of vasectomy Status post appendectomy (~1950) Presence of cardiac pacemaker Family History Father No problems noted. 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 armand/zoroastrianism: Nondenominational travel history: recent ([place]) and over 6 months ago ([place]) leisure activities: other (Quilting) Smoking Status: Former smoker Tobacco: How many years used: 32 Smokeless tobacco user: other (Cigarettes, Marijuana) quit status: quit date established (Cigarettes 1985, Marijuana 1982) second hand exposure: No alcohol intake: former substance use type: does not use Smoking Status: Former smoker alcohol intake frequency: 0-2 drinks per day Substance Use Type: does not use Exam Initial Vital Signs Initial Vital Signs: Vital Signs Temperature 97.2 F L 10/08/23 15:45 Pulse Rate 70 10/08/23 15:45 Respiratory Rate 16 10/08/23 15:45 Blood Pressure 117/55 L 10/08/23 15:45 Pulse Oximetry 96 10/08/23 15:45 Oxygen Delivery Method Room Air 10/08/23 15:45 Const General: cooperative and well developed HENMT Head: normal to inspection and normocephalic Resp Effort & Inspection: normal respiratory effort Auscultation: clear to auscultation bilaterally Cardio Rate: regular rate Rhythm: regular rhythm GI Inspection: normal to inspection and non-distended Skin General: no rashes or lesions noted Neuro General: patient alert and patient awake Course Orders Ordered: ED Orders 10/08/23 15:55 Covid-19 + FLU A/B + RSV - PCR Stat 10/08/23 16:36 XR chest 1V Stat EKG-12 Lead Stat 10/08/23 16:47 Complete Blood Count AUTO DIFF Stat Comprehensive Metabolic Panel Stat Lipase Stat NT-proBNP (BNP-Adult 18+) Stat Procalcitonin Stat Troponin & CK Cardiac Panel Stat 10/08/23 16:48 Sputum Culture Stat Discontinued Medications Benzonatate (Benzonatate 100 Mg Capsule) 100 mg PO NOW ONE Stop: 10/08/23 18:15 Last Admin: 10/08/23 18:47 Dose: 100 mg Documented By: ITZEL Prednisone (Prednisone 20 Mg Tablet) 20 mg PO NOW ONE Stop: 10/08/23 18:15 Last Admin: 10/08/23 18:47 Dose: 20 mg Documented By: ITZEL Vital Signs Vital signs: Vital Signs - 8 hr 10/08/23 15:45 10/08/23 18:34 10/08/23 18:34 Temperature 97.2 F L Pulse Rate 70 70 Respiratory Rate 16 Blood Pressure 117/55 L 118/67 Pulse Oximetry 96 95 Oxygen Delivery Method Room Air 10/08/23 18:53 Temperature Pulse Rate 70 Respiratory Rate 12 Blood Pressure 113/59 L Pulse Oximetry 94 Oxygen Delivery Method Room Air Medical Decision Making Lab Data Lab results reviewed: Yes I reviewed the patient's lab results. 10/08/23 16:47 10/08/23 16:47 Labs: Lab Results 10/08/23 10/08/23 Range/Units 15:55 16:47 WBC 7.7 (4.5-11.0) X10^3/uL RBC 4.44 L (4.5-5.9) X10^6/uL Hgb 14.2 (13.5-17.5) g/dL Hct 41.6 (41-53) % MCV 93.7 (80-100) fL MCH 31.9 (26-34) PG MCHC 34.0 (30-36) % RDW 14.4 (11.6-14.8) % Plt Count 139 L (150-400) X10^3/uL Neut % (Auto) 66.0 (50-75) % Lymph % (Auto) 17.1 L (25-40) % [place] % (Auto) 14.1 H (3-14) % Eos % (Auto) 1.7 L (2-4) % Baso % (Auto) 1.1 (0-2) % Neut # (Auto) 5100 (2833-3131) /uL Lymph # (Auto) 1300 (6722-6411) /uL [place] # (Auto) 1100 H (0-900) /uL Eos # (Auto) 100 (0-450) /uL Baso # (Auto) 100 (0-100) /uL Sodium 137 (137-145) mmol/L Potassium 3.6 (3.4-5.1) mmol/L Chloride 103 (98-107) mmol/L Carbon Dioxide 27 (22-32) mmol/L BUN 25 H (9-20) mg/dL Creatinine 1.01 (0.66-1.25) mg/dL Estimated GFR > 60 (>60) mL/min BUN/Creatinine Ratio 24.8 H (6-22) Glucose 110 (80-110) mg/dL Calcium 8.6 (8.4-10.2) mg/dL Total Bilirubin 1.9 H (0.2-1.3) mg/dL AST 37 (17-59) IU/L ALT 24 (<50) IU/L Alkaline Phosphatase 61 (38-126) U/L Total Creatine Kinase 244 H (55-170) U/L Troponin I < 0.012 (0.01-0.034) ng/mL NT-Pro-B Natriuret Pep 599 H (<450) pg/mL Total Protein 7.6 (6.3-8.2) g/dL Albumin 4.3 (3.5-5.0) g/dL Globulin 3.3 (1.7-4.1) g/dL Albumin/Globulin Ratio 1.3 (1.0-2.8) Lipase 20 L (23-300) U/L Procalcitonin 0.949 H (<0.5) ng/mL SARS-CoV-2 (PCR) Negative (Negative) Influenza A (RT-PCR) Flu a negative (NEGATIVE) Influenza B (RT-PCR) Flu b negative (NEGATIVE) RSV (PCR) Negative (Negative) Imaging Data Chest x-ray: Radiologist's Impression: PROCEDURE: XR CHEST 1V INDICATIONS: chest pain TECHNIQUE: One view of the chest was acquired. COMPARISON: [facility], CR, XR CHEST 1V, 11/10/2020, 14:27. FINDINGS: Surgical changes and devices: Left chest wall pacer lead is in the region of right ventricle. Lungs and pleura: Mild pulmonary vascular congestion is seen. No definite focal infiltrate. No pleural effusions or pneumothorax. Mediastinum: Mediastinal contours appear normal. Heart size is enlarged. Bones and chest wall: No suspicious bony lesions. Overlying soft tissues appear unremarkable. IMPRESSION: Cardiomegaly and mild congestion. No definite focal infiltrate. No pleural effusion or pneumothorax. ECG Data Attestation: I personally reviewed and interpreted this ECG as follows: Interpretation: Ventricularly paced Rate is 70 MDM Narrative Medical decision making narrative: Patient does describe hemoptysis not hematemesis. His vital signs are unremarkable. Lungs are clear. Chest x-ray is unremarkable. I suspect this is a bronchitis most likely from viral illness and given the fact that he was on Eliquis he is having the blood-tinged sputum. There was no indication for blood transfusion. No indication for admission to the hospital. No indication for antibiotics. Will put him on 3 days of steroids. First dose here in the ER. Also sent home with Joseon to try to help with the cough. He was given return precautions and follow-up instructions. He expressed understanding and agreement. Discharge Plan Departure Patient Disposition: Home Clinical Impression: Bronchitis, Cough with hemoptysis Instructions: DI for Bronchiolitis Activity Restrictions/Additional Instructions: I do recommend that you take the steroids as directed. Your next dose will be tomorrow 10/09/2023. Use the benzoate/Tessalon Perles as needed for the cough. Contact your primary doctor for a follow-up. Return to the emergency department for new or worsening symptoms. Prescriptions: New prednisone 20 mg tablet 20 mg PO DAILY Qty: 2 0RF benzonatate 100 mg capsule 100 mg PO BID-TID PRN (Reason: cough) Qty: 20 0RF No Action levothyroxine 150 MCG tablet 150 mcg PO QAM Qty: 0 amlodipine 10 MG tablet 10 mg PO QDAY Qty: 90 3RF bupropion HCl [Wellbutrin XL] 150 MG tablet extended release 24 hr 150 mg PO QDAY Qty: 30 3RF escitalopram oxalate 10 mg tablet 10 mg PO DAILY lisinopril 40 mg tablet 40 mg PO DAILY Qty: 90 3RF atorvastatin 10 mg Tablet 10 mg PO QPM aspirin [Adult Aspirin EC Low Strength] 81 mg Tablet,Delayed Release (Dr/Ec) 81 mg PO DAILY Eliquis 5 mg Tablet 5 mg PO BID Patient Comments: NEW MEDICATION FOR PATIENT. UNSURE OF STRENGTH omeprazole 20 mg capsule,delayed release(DR/EC) 30 mg PO BID Referrals: Ildefonso Whyte MD [Primary Care Provider] - Stand Alone Forms: Patient Portal/API
[2023-10-08 18:34] VITALS: BP 118/67; PULSE 70; O2SAT 95
[2023-10-08] MEDS: BENZONATATE 100 MG CAPSULE PO (18:47)
[2023-10-08] MEDS: predniSONE 20 MG TABLET PO (18:47)
[2023-10-08 18:53] VITALS: BP 113/59; PULSE 70; RESP 12; O2SAT 94
== END 2023-10-08 18:54 | disposition home or self-care (01) ==
PROVIDERS: Emergency Medicine; Emergency Provider Emergency Medicine; PCP Internal Medicine
DX: J40 Bronchitis, not specified as acute or chronic (principal); R04.2 Hemoptysis; Z95.0 Presence of cardiac pacemaker; Z79.01 Long term (current) use of anticoagulants; Z87.891 Personal history of nicotine dependence
CPT/HCPCS: 0241U; 36415; 71045; 80053; 82550; 83690; 83880; 84145; 84484; 85025; 87070; 87205; 93005; 99283; 99284

== ENCOUNTER 2023-11-03 08:15 | Emergency (ER) | payer OTHER, SELFPAY ==
[2023-11-03 08:19] VITALS: BP 129/78; PULSE 99; RESP 19; TEMP 36.1; O2SAT 98; BMI 31.8
--- NOTE | 2023-11-03 08:24 | ED_ITS ---
HPI - Male Genitourinary General Chief complaint: Urogenital-Male Stated complaint: Peeing blood Time Seen by Provider: 11/03/23 08:18 History of Present Illness HPI Narrative: 78-year-old male with history of AFib on Eliquis presents for phani hematuria since this morning. Patient states that last night when he went to bed his urine was normal, but this morning he had bright red blood in his urine. He states that this has never happened before. Underwent colonoscopy and endoscopy earlier this week and has been off of his Eliquis for the last 3 days. Has never seen a urologist. Related Data Home Medications Medication Instructions Recorded Confirmed levothyroxine 150 mcg tablet 150 mcg PO QAM ##0 02/05/17 11/15/20 omeprazole 20 mg capsule,delayed 30 mg PO BID 10/30/17 11/15/20 release apixaban 5 mg tablet (Eliquis) 5 mg PO BID 11/10/20 11/15/20 aspirin 81 mg tablet,delayed 81 mg PO DAILY 11/10/20 11/15/20 release atorvastatin 10 mg tablet 10 mg PO QPM 11/10/20 11/15/20 escitalopram oxalate 10 mg tablet 10 mg PO DAILY 11/15/20 11/15/20 Previous Rx's Medication Instructions Recorded amlodipine 10 mg tablet 10 mg PO QDAY #90 tabs 05/05/17 bupropion HCl 150 mg 24 hr tablet, 150 mg PO QDAY #30 tabs 05/05/17 extended release (Wellbutrin XL) lisinopril 40 mg tablet 40 mg PO DAILY #90 tabs 03/22/18 benzonatate 100 mg capsule 100 mg PO BID-TID PRN cough #20 10/08/23 caps prednisone 20 mg tablet 20 mg PO DAILY #2 tabs 10/08/23 Allergies Allergy/AdvReac Type Severity Reaction Status Date / Time atorvastatin AdvReac Intermediate myalgia Verified 11/03/23 08:24 rosuvastatin [From Crestor] AdvReac Intermediate myalgia Verified 11/03/23 08:24 Patient History Medical History Coronary artery disease (~10/2017) Colon polyps Cardiac arrhythmia Essential hypertension (02/27/17) Central retinal artery occlusion of left eye (02/27/17) History of permanent cardiac pacemaker placement (02/22/15) Chronic atrial fibrillation (02/22/15) Acquired hypothyroidism (08/09/12) Gastroesophageal reflux disease without esophagitis (08/09/12) Surgical History Status post cholecystectomy History of vasectomy Status post appendectomy (~1950) Presence of cardiac pacemaker Family History Father No problems noted. 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 armand/sikhism: Jehovah'S Witness travel history: recent ([place]) and over 6 months ago ([place]) leisure activities: other ([employer]ilting) Smoking Status: Former smoker Tobacco: How many years used: 32 Smokeless tobacco user: other (Cigarettes, Marijuana) quit status: quit date established (Cigarettes 1985, Marijuana 1982) second hand exposure: No alcohol intake: former substance use type: does not use Smoking Status: Former smoker alcohol intake frequency: 0-2 drinks per day Substance Use Type: does not use Exam Initial Vital Signs Initial Vital Signs: Vital Signs Temperature 97 F L 11/03/23 08:19 Pulse Rate 99 H 11/03/23 08:19 Respiratory Rate 19 11/03/23 08:19 Blood Pressure 129/78 11/03/23 08:19 Pulse Oximetry 98 11/03/23 08:19 Oxygen Delivery Method Room Air 11/03/23 08:19 Const: Awake, alert, no acute distress, nontoxic appearing Cardiac: regular rate, regular rhythm RESP: unlabored, clear bilaterally, no wheezing GI: Soft, nontender, nondistended, no rebound, no guarding : Field Marketing Associate present, atraumatic, normal external genitalia MSK: Atraumatic, full range of motion, pulses equal Skin: Warm, Dry, intact, no rashes Neuro: AO x3, CN II-XII grossly intact, moves all extremities Course Orders Ordered: Discontinued Medications Lidocaine HCl (Lidocaine 2% (Glydo) 6 Ml Gel) 6 ml TOP NOW ONE Stop: 11/03/23 09:16 Last Admin: 11/03/23 10:05 Dose: 6 ml Documented By: JIMI Vital Signs Vital signs: Vital Signs - 8 hr 11/03/23 08:19 11/03/23 11:11 11/03/23 11:12 Temperature 97 F L Pulse Rate 99 H 70 71 Respiratory Rate 19 Blood Pressure 129/78 Pulse Oximetry 98 96 97 Oxygen Delivery Method Room Air 11/03/23 11:12 11/03/23 11:30 11/03/23 11:30 Temperature Pulse Rate 70 Respiratory Rate Blood Pressure 145/83 H 136/81 Pulse Oximetry 95 Oxygen Delivery Method MDM - Male Genitourinary Differential Diagnosis Differential diagnosis: Likely urinary tract infection, acute retention of urine and inguinal hernia Lab Data 11/03/23 08:25 11/03/23 08:25 Labs: Lab Results 11/03/23 11/03/23 Range/Units 08:25 08:29 WBC 6.5 (4.5-11.0) X10^3/uL RBC 4.72 (4.5-5.9) X10^6/uL Hgb 14.9 (13.5-17.5) g/dL Hct 44.8 (41-53) % MCV 94.9 (80-100) fL MCH 31.6 (26-34) PG MCHC 33.3 (30-36) % RDW 15.1 H (11.6-14.8) % Plt Count 135 L (150-400) X10^3/uL Neut % (Auto) 61.7 (50-75) % Lymph % (Auto) 24.5 L (25-40) % [place] % (Auto) 10.0 (3-14) % Eos % (Auto) 2.3 (2-4) % Baso % (Auto) 1.5 (0-2) % Neut # (Auto) 4000 (2021-1211) /uL Lymph # (Auto) 1600 (8243-2869) /uL [place] # (Auto) 600 (0-900) /uL Eos # (Auto) 100 (0-450) /uL Baso # (Auto) 100 (0-100) /uL PT 12.3 (9.4-12.5) SECONDS INR 1.1 (0.9-1.3) Sodium 139 (137-145) mmol/L Potassium 3.8 (3.4-5.1) mmol/L Chloride 108 H (98-107) mmol/L Carbon Dioxide 27 (22-32) mmol/L BUN 15 (9-20) mg/dL Creatinine 0.88 (0.66-1.25) mg/dL Estimated GFR > 60 (>60) mL/min BUN/Creatinine Ratio 17.0 (6-22) Glucose 101 (80-110) mg/dL Calcium 9.2 (8.4-10.2) mg/dL Total Bilirubin 0.7 (0.2-1.3) mg/dL AST 31 (17-59) IU/L ALT 22 (<50) IU/L Alkaline Phosphatase 104 (38-126) U/L Total Protein 7.8 (6.3-8.2) g/dL Albumin 4.5 (3.5-5.0) g/dL Globulin 3.3 (1.7-4.1) g/dL Albumin/Globulin Ratio 1.4 (1.0-2.8) Urine Color Red Urine Appearance Cloudy Urine pH TNP Ur Specific [place] TNP Urine Protein TNP Urine Glucose (UA) TNP Urine Ketones TNP Urine Occult Blood TNP Urine Nitrate TNP Urine Bilirubin TNP Ur Bilirubin Confirm Negative (Negative) Urine Urobilinogen TNP Ur Leukocyte Esterase TNP Urine RBC >100/hpf H (0-5/HPF) Urine WBC 5-10/hpf H (0-5/HPF) Ur Squamous Epith Cells 1-5 /hpf (0-5/HPF) Calcium Oxalate Crystal Occasional H Urine Bacteria Few (2-10) H (None) Ur Culture Indicated? Specimen cultured Vol Urine Centrifuged 10ml (spun) Urine Dip Bedside Urine Glucose 100 mg/dl Bedside Urine Bilirubin - Negative Bedside Urine Ketone - Negative Urine Specific [place] 1.015 Bedside Urine Occult Blood +++ Bedside Urine pH 6.0 Bedside Urine Protein - Negative Bedside Urine Urobilinogen - Negative Bedside Urine Nitrite - Negative Bedside Urine Leukocytes - Negative Esterase Imaging Data CT scan - abdomen/pelvis: My Impression: PROCEDURE: CT ABDOMEN PELVIS W CON INDICATIONS: PHANI HEMATURIA TECHNIQUE: After the administration of intravenous contrast, axial sections acquired from the lung bases to the pubic symphysis. Coronal and sagittal reformats were performed. For radiation dose reduction, the following was used: automated exposure control, adjustment of mA and/or kV according to patient size. COMPARISON: None. FINDINGS: Image quality: Diagnostic. Lower Chest: No significant findings. ABDOMEN: Liver: No solid mass. Liver has nodular margins concerning for hepatic cirrhosis. Gallbladder: Gallbladder is surgically absent. Biliary ducts: No biliary dilation. Pancreas: No ductal dilation. Spleen: Size is within normal limits. Adrenal Glands: No adrenal nodules. Kidneys and Ureters: No hydronephrosis. No solid mass. No complex renal cystic lesion which requires follow up. Stomach and Bowel: Normal colonic caliber, without significant wall thickening. No evidence of appendicitis. Peritoneum: No abnormal intraperitoneal fluid. No free air. Ventral Wall: No significant ventral hernia. Abdominal Nodes: No retroperitoneal or mesenteric adenopathy by size criteria. Vessels: Aorta and inferior vena cava are normal in size. Scattered atherosclerotic calcifications involving the abdominal and pelvic vasculature. PELVIS: Pelvic Organs: Unremarkable. Bladder: Bladder wall is diffusely thickened. Prostate is enlarged. Pelvic Nodes: No enlarged lymph nodes. Miscellaneous: Small bilateral fat containing inguinal hernias, left greater than right. Bones: No aggressive osseous abnormality. Spine degenerative disc disease and facet arthropathy. IMPRESSION: Diffuse urinary bladder wall thickening which could be due to cystitis or infiltrating neoplasm. Prostatomegaly. Cirrhotic appearing liver. Correlate with clinical and laboratory data. Dictated by: Monae Chacon MD, PhD on 11/03/2023 at 9:17 Approved by: Monae Chacon MD, PhD on 11/03/2023 at 9:22 MDM Narrative Medical decision making narrative: Sudden onset of gross hematuria. Has been off of his blood thinners for the last several days. Hemodynamically stable. Three-way Lee placed and bladder copiously irrigated. After 1 bag of CBI the irrigation was clamped and patient is subsequently had output of clear yellow urine. Point of care showed RBCs still present without sign of infection. CT of the abdomen and pelvis showed diffuse bladder wall thickening, prostatomegaly. Laboratory work reviewed, no anemia, no indication for transfusion at this time. Case discussed with Dr. Bro of on-call Urology, who recommended that patient continue to hold his Eliquis until he can be seen by Urology. Patient informed of lab and imaging results as well as on the importance of Urology follow up to get to the bottom of why patient was having blood in his urine. Strict ED return precautions discussed at bedside. Discharge Plan Departure Patient Disposition: Home Clinical Impression: Phani hematuria Instructions: DI for Hematuria Activity Restrictions/Additional Instructions: Your hemoglobin today was normal. Your CT scan did not show any obvious cause of why you may have had blood in your urine today. It was extremely important that you follow up with the Urology, a referral has been provided. Because of the bleeding in your urine it was recommended that you continue to hold your Eliquis unless otherwise told to by your lead warehouse associate and urology. Prescriptions: No Action levothyroxine 150 MCG tablet 150 mcg PO QAM Qty: 0 amlodipine 10 MG tablet 10 mg PO QDAY Qty: 90 3RF bupropion HCl [Wellbutrin XL] 150 MG tablet extended release 24 hr 150 mg PO QDAY Qty: 30 3RF escitalopram oxalate 10 mg tablet 10 mg PO DAILY lisinopril 40 mg tablet 40 mg PO DAILY Qty: 90 3RF atorvastatin 10 mg Tablet 10 mg PO QPM aspirin [Adult Aspirin EC Low Strength] 81 mg Tablet,Delayed Release (Dr/Ec) 81 mg PO DAILY Eliquis 5 mg Tablet 5 mg PO BID Patient Comments: NEW MEDICATION FOR PATIENT. UNSURE OF STRENGTH omeprazole 20 mg capsule,delayed release(DR/EC) 30 mg PO BID prednisone 20 mg tablet 20 mg PO DAILY Qty: 2 0RF benzonatate 100 mg capsule 100 mg PO BID-TID PRN (Reason: cough) Qty: 20 0RF Referrals: Miscellaneous,MD Sybil [Primary Care Provider] - Zhang Bro MD [Physician] - Stand Alone Forms: Patient Portal/API
[2023-11-03 08:41] LABS: Color Urine UA RED
[2023-11-03 08:41] LABS: Add Manual Diff / Slide Review NO; Basophils Absolute Auto 100 /uL (0-100); Basophils Percent Auto 1.5 % (0-2); Eosinophils Absolute Auto 100 /uL (0-450); Eosinophils Percent Auto 2.3 % (2-4); Hematocrit 44.8 % (41-53); Hemoglobin 14.9 g/dL (13.5-17.5); Lymphocytes Absolute Auto 1600 /uL (1100-4500); Lymphocytes Percent Auto 24.5 % (25-40); Mean Corpuscular HGB Conc 33.3 % (30-36); Mean Corpuscular Hemoglobin 31.6 PG (26-34); Mean Corpuscular Volume 94.9 fL (80-100); Monocytes Absolute Auto 600 /uL (0-900); Neutrophils Absolute Auto 4000 /uL (1500-7000); Neutrophils Percent Auto 61.7 % (50-75); Platelet Count 135 X10^3/uL (150-400); Red Blood Cell Count 4.72 X10^6/uL (4.5-5.9); Red Cell Distribution Width 15.1 % (11.6-14.8); White Blood Cell Count 6.5 X10^3/uL (4.5-11.0)
[2023-11-03 08:42] LABS: Appearance Urine UA CLOUDY
[2023-11-03 08:43] LABS: INR 1.1 (0.9-1.3); Prothrombin Time 12.3 SECONDS (9.4-12.5)
[2023-11-03 08:46] LABS: Ictotest Urine Negative (Negative)
[2023-11-03 08:47] LABS: Alanine Aminotransferase 22 IU/L (<50); Albumin 4.5 g/dL (3.5-5.0); Albumin Globulin Ratio 1.4 (1.0-2.8); Alkaline Phosphatase 104 U/L (38-126); Aspartate Aminotransferase 31 IU/L (17-59); Bilirubin Total 0.7 mg/dL (0.2-1.3); Blood Urea Nitrogen 15 mg/dL (9-20); Calcium 9.2 mg/dL (8.4-10.2); Carbon Dioxide 27 mmol/L (22-32); Chloride 108 mmol/L (98-107); Estimated Glomerular Filt Rate > 60 mL/min (>60); Globulin 3.3 g/dL (1.7-4.1); Glucose 101 mg/dL (80-110); HEMOLYSIS 42 (0-50); Potassium 3.8 mmol/L (3.4-5.1); Sodium 139 mmol/L (137-145); Total Protein 7.8 g/dL (6.3-8.2)
[2023-11-03 08:51] LABS: Bacteria Urine Few (2-10); Calcium Oxalate Crystals Urine Occasional; RBC Urine >100/HPF (0-5/HPF); Squamous Epithelial Cell Urine 1-5 /HPF (0-5/HPF); Urine Volume 10mL (spun); WBC Urine 5-10/HPF (0-5/HPF)
[2023-11-03 08:52] LABS: Culture Indicated Urine Specimen Cultured
--- NOTE | 2023-11-03 09:15 | DI.CT.S_ITS ---
PROCEDURE: CT ABDOMEN PELVIS W CON INDICATIONS: JADE HEMATURIA TECHNIQUE: After the administration of intravenous contrast, axial sections acquired from the lung bases to the pubic symphysis. Coronal and sagittal reformats were performed. For radiation dose reduction, the following was used: automated exposure control, adjustment of mA and/or kV according to patient size. COMPARISON: None. FINDINGS: Image quality: Diagnostic. Lower Chest: No significant findings. ABDOMEN: Liver: No solid mass. Liver has nodular margins concerning for hepatic cirrhosis. Gallbladder: Gallbladder is surgically absent. Biliary ducts: No biliary dilation. Pancreas: No ductal dilation. Spleen: Size is within normal limits. Adrenal Glands: No adrenal nodules. Kidneys and Ureters: No hydronephrosis. No solid mass. No complex renal cystic lesion which requires follow up. Stomach and Bowel: Normal colonic caliber, without significant wall thickening. No evidence of appendicitis. Peritoneum: No abnormal intraperitoneal fluid. No free air. Ventral Wall: No significant ventral hernia. Abdominal Nodes: No retroperitoneal or mesenteric adenopathy by size criteria. Vessels: Aorta and inferior vena cava are normal in size. Scattered atherosclerotic calcifications involving the abdominal and pelvic vasculature. PELVIS: Pelvic Organs: Unremarkable. Bladder: Bladder wall is diffusely thickened. Prostate is enlarged. Pelvic Nodes: No enlarged lymph nodes. Miscellaneous: Small bilateral fat containing inguinal hernias, left greater than right. Bones: No aggressive osseous abnormality. Spine degenerative disc disease and facet arthropathy. IMPRESSION: Diffuse urinary bladder wall thickening which could be due to cystitis or infiltrating neoplasm. Prostatomegaly. Cirrhotic appearing liver. Correlate with clinical and laboratory data. Dictated by: Monae Chacon MD, PhD on 11/03/2023 at 9:17 Approved by: Monae Chacon MD, PhD on 11/03/2023 at 9:22
[2023-11-03] MEDS: LIDOCAINE 2% (GLYDO) 6 ML GEL TOP (10:05)
--- NOTE | 2023-11-03 11:09 | PC.NURSE ---
See triage note
[2023-11-03 11:11] VITALS: PULSE 70; O2SAT 96
[2023-11-03 11:12] VITALS: BP 145/83; PULSE 71; O2SAT 97
[2023-11-03 11:30] VITALS: BP 136/81; PULSE 70; O2SAT 95
== END 2023-11-03 12:22 | disposition home or self-care (01) ==
PROVIDERS: Emergency Provider Emergency Medicine
DX: R31.9 Hematuria, unspecified (principal)
CPT/HCPCS: 36415; 51702; 74177; 80053; 81001; 81003; 85025; 85610; 87077; 87086; 87186; 99284; Q9967

== ENCOUNTER 2023-11-28 11:01 | Emergency (ER) | payer OTHER, SELFPAY ==
[2023-11-28 11:10] VITALS: BP 120/58; PULSE 78; RESP 17; TEMP 36.3; O2SAT 95; BMI 34.4
[2023-11-28 11:43] VITALS: BP 117/69; PULSE 102; O2SAT 95
[2023-11-28 11:51] VITALS: BP 115/67; PULSE 69; O2SAT 96
[2023-11-28 12:00] VITALS: BP 113/64; PULSE 70; O2SAT 94
[2023-11-28 12:06] LABS: Add Manual Diff / Slide Review NO; Basophils Absolute Auto 0 /uL (0-100); Basophils Percent Auto 0.6 % (0-2); Eosinophils Absolute Auto 200 /uL (0-450); Eosinophils Percent Auto 2.9 % (2-4); Hematocrit 42.5 % (41-53); Hemoglobin 14.4 g/dL (13.5-17.5); Lymphocytes Absolute Auto 1300 /uL (1100-4500); Lymphocytes Percent Auto 21.8 % (25-40); Mean Corpuscular HGB Conc 33.9 % (30-36); Mean Corpuscular Volume 94.2 fL (80-100); Monocytes Absolute Auto 700 /uL (0-900); Monocytes Percent Auto 11.5 % (3-14); Neutrophils Absolute Auto 3700 /uL (1500-7000); Neutrophils Percent Auto 63.2 % (50-75); Platelet Count 129 X10^3/uL (150-400); Red Blood Cell Count 4.51 X10^6/uL (4.5-5.9); Red Cell Distribution Width 15.6 % (11.6-14.8); White Blood Cell Count 5.9 X10^3/uL (4.5-11.0)
--- NOTE | 2023-11-28 12:14 | ED.MALEGU ---
HPI - Male Genitourinary <MELY Liu - Last Filed: 11/28/23 12:48> General Chief complaint: Urogenital-Male Stated complaint: phani hematuria per pt Time Seen by Provider: 11/28/23 11:25 Source: patient Mode of arrival: Ambulatory History of Present Illness HPI Narrative: 78-year-old male, currently on Eliquis, presents to the emergency department with hematuria since this morning. Patient reports phani blood when urinating. Patient has urinated twice today without difficulty and no let up of the color and consistency of blood. Patient was previously evaluated in the emergency department on November 02 for identical symptoms, labs were with all within normal limits and three-way catheter flushed is bladder. Patient was told to hold off on his Eliquis until directed to restart by Cardiology or Urology. Patient states it was about 3 days before he started taking his Eliquis again. Patient did take his Eliquis this morning. Patient denies any lightheadedness, blurry vision, etc.. Related Data Home Medications Medication Instructions Recorded Confirmed levothyroxine 150 mcg tablet 150 mcg PO QAM ##0 02/05/17 11/28/23 apixaban 5 mg tablet (Eliquis) 5 mg PO BID 11/10/20 11/28/23 atorvastatin 10 mg tablet 10 mg PO QPM 11/10/20 11/28/23 escitalopram oxalate 10 mg tablet 10 mg PO DAILY 11/15/20 11/28/23 empagliflozin 10 mg tablet 10 mg PO BEDTIME 11/28/23 11/28/23 furosemide 40 mg tablet 40 mg PO DAILY 11/28/23 11/28/23 isosorbide mononitrate 60 mg 60 mg PO DAILY 11/28/23 11/28/23 tablet,extended release 24 hr losartan 25 mg tablet 25 mg PO DAILY 11/28/23 11/28/23 naltrexone 50 mg tablet 50 mg PO DAILY 11/28/23 11/28/23 pantoprazole 40 mg tablet,delayed 40 mg PO DAILY 11/28/23 11/28/23 release spironolactone 25 mg tablet 25 mg PO DAILY 11/28/23 11/28/23 Previous Rx's Medication Instructions Recorded amlodipine 10 mg tablet 10 mg PO QDAY #90 tabs 05/05/17 bupropion HCl 150 mg 24 hr tablet, 150 mg PO QDAY #30 tabs 05/05/17 extended release (Wellbutrin XL) nitrofurantoin 100 mg PO Q12H uti 7 days #14 caps 11/28/23 monohydrate/macrocrystals 100 mg capsule (Macrobid) Allergies Allergy/AdvReac Type Severity Reaction Status Date / Time atorvastatin AdvReac Intermediate myalgia Verified 11/28/23 11:25 rosuvastatin [From Crestor] AdvReac Intermediate myalgia Verified 11/28/23 11:25 lisinopril AdvReac Cough Verified 11/28/23 11:25 Review of Systems <MELY Liu - Last Filed: 11/28/23 12:48> Review of Systems Narrative: Narrative: See HPI. GENERAL: Denies chills, fatigue, fever, sweats. HEENT: Denies sinus pain, ear pain, sore throat, difficulty swallowing, dizziness. RESPIRATORY: Denies dyspnea, cough, wheezing, sputum. CARDIOVASCULAR: Denies chest pain, palpitations, edema. GASTROINTESTINAL: Denies nausea, vomiting, abdominal pain, diarrhea, constipation. : Denies dysuria, frequency, incontinence, urinary retention, flank pain. Endorses hematuria. MSK: Denies weakness, joint pain, or bony pain. SKIN: Denies rash, skin lesions, or pruritis. NEUROLOGIC: Denies weakness, dizziness, headache, numbness, confusion. PSYCHIATRIC: No concerning psychosocial issues. Patient History <MELY Liu - Last Filed: 11/28/23 12:48> Medical History (Updated 11/28/23 @ 12:48 by MELY Liu) Coronary artery disease (~10/2017) Colon polyps Cardiac arrhythmia Essential hypertension (02/27/17) Central retinal artery occlusion of left eye (02/27/17) History of permanent cardiac pacemaker placement (02/22/15) Chronic atrial fibrillation (02/22/15) Acquired hypothyroidism (08/09/12) Gastroesophageal reflux disease without esophagitis (08/09/12) Surgical History Status post cholecystectomy History of vasectomy Status post appendectomy (~1950) Presence of cardiac pacemaker Family History Father No problems noted. 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 travel history: recent ([place]) and over 6 months ago ([place]) leisure activities: other (Quilting) Smoking Status: Former smoker Tobacco: How many years used: 32 Smokeless tobacco user: other (Cigarettes, Marijuana) quit status: quit date established (Cigarettes 1985, Marijuana 1982) second hand exposure: No alcohol intake: former substance use type: does not use Smoking Status: Former smoker alcohol intake frequency: other Substance Use Type: does not use Exam <MELY Liu - Last Filed: 11/28/23 12:48> Narrative Exam Narrative: Exam Narrative: GENERAL: This is a well-nourished, well-developed patient, in no acute distress. HEAD: Atraumatic. Normocephalic. EYES: Right Pupil equal round and reactive. No scleral icterus, injection or drainage. ENT: Nose without bleeding, purulent drainage. Airway patent. NECK: Trachea midline. No JVD. CARDIOVASCULAR: Regular rate and rhythm without murmurs, peripheral pulses intact, cap refill <2 sec. RESPIRATORY: Breath sounds equal and clear bilaterally. No wheezes, rales, or rhonchi. No cough. No increased respiratory effort. No accessory muscle use. GASTROINTESTINAL: Abdomen soft, non-tender, nondistended without guarding or rebound. No suprapubic pain. MSK: Moves all extremities. Normal range of motion, no clubbing or edema. Neurovascularly intact. NEURO: A&O x 3. SKIN: Warm, dry, no rashes or lesions noted. Initial Vital Signs Initial Vital Signs: Vital Signs Temperature 97.4 F L 11/28/23 11:10 Pulse Rate 78 11/28/23 11:10 Respiratory Rate 17 11/28/23 11:10 Blood Pressure 120/58 L 11/28/23 11:10 Pulse Oximetry 95 11/28/23 11:10 Oxygen Delivery Method Room Air 11/28/23 11:10 Reviewed <Valerio Hannah DO - Last Filed: 11/28/23 12:53> Initial Vital Signs Initial Vital Signs: Vital Signs Temperature 97.4 F L 11/28/23 11:10 Pulse Rate 78 11/28/23 11:10 Respiratory Rate 17 11/28/23 11:10 Blood Pressure 120/58 L 11/28/23 11:10 Pulse Oximetry 95 11/28/23 11:10 Oxygen Delivery Method Room Air 11/28/23 11:10 Course <MELY Liu - Last Filed: 11/28/23 12:48> Orders Ordered: ED Orders 11/28/23 12:00 Basic Metabolic Panel Stat Complete Blood Count AUTO DIFF Stat 11/28/23 12:23 Urine Culture Stat Urine Microscopic Stat Vital Signs Vital signs: Vital Signs - 8 hr 11/28/23 11:10 Temperature 97.4 F L Pulse Rate 78 Respiratory Rate 17 Blood Pressure 120/58 L Pulse Oximetry 95 Oxygen Delivery Method Room Air <Valerio Hannah DO - Last Filed: 11/28/23 12:53> Orders Ordered: ED Orders 11/28/23 12:00 Basic Metabolic Panel Stat Complete Blood Count AUTO DIFF Stat 11/28/23 12:23 Urine Culture Stat Urine Microscopic Stat Vital Signs Vital signs: Vital Signs - 8 hr 11/28/23 11:10 Temperature 97.4 F L Pulse Rate 78 Respiratory Rate 17 Blood Pressure 120/58 L Pulse Oximetry 95 Oxygen Delivery Method Room Air MDM - Male Genitourinary <MELY Liu - Last Filed: 11/28/23 12:48> Differential Diagnosis Differential diagnosis: Likely urinary tract infection, acute retention of urine and other (Hematuria) Lab Data 11/28/23 12:00 11/28/23 12:00 Labs: Lab Results 11/28/23 11/28/23 Range/Units 12:00 12:23 WBC 5.9 (4.5-11.0) X10^3/uL RBC 4.51 (4.5-5.9) X10^6/uL Hgb 14.4 (13.5-17.5) g/dL Hct 42.5 (41-53) % MCV 94.2 (80-100) fL MCH 32.0 (26-34) PG MCHC 33.9 (30-36) % RDW 15.6 H (11.6-14.8) % Plt Count 129 L (150-400) X10^3/uL Neut % (Auto) 63.2 (50-75) % Lymph % (Auto) 21.8 L (25-40) % Frontier % (Auto) 11.5 (3-14) % Eos % (Auto) 2.9 (2-4) % Baso % (Auto) 0.6 (0-2) % Neut # (Auto) 3700 (5946-9836) /uL Lymph # (Auto) 1300 (8301-6955) /uL Frontier # (Auto) 700 (0-900) /uL Eos # (Auto) 200 (0-450) /uL Baso # (Auto) 0 (0-100) /uL Sodium 140 (137-145) mmol/L Potassium 3.8 (3.4-5.1) mmol/L Chloride 107 (98-107) mmol/L Carbon Dioxide 26 (22-32) mmol/L BUN 17 (9-20) mg/dL Creatinine 0.79 (0.66-1.25) mg/dL Estimated GFR > 60 (>60) mL/min BUN/Creatinine Ratio 21.5 (6-22) Glucose 113 H (80-110) mg/dL Calcium 9.2 (8.4-10.2) mg/dL Urine RBC 30-100/hpf H (0-5/HPF) Urine WBC >100/hpf H (0-5/HPF) Ur Squamous Epith Cells None seen (0-5/HPF) Urine Bacteria Moderate (10-30) H (None) Ur Culture Indicated? Specimen cultured Vol Urine Centrifuged 10ml (spun) Urine Dip Bedside Urine Glucose 1000 mg/dl Bedside Urine Bilirubin - Negative Bedside Urine Ketone - Negative Urine Specific Marion 1.020 Bedside Urine Occult Blood +++ Bedside Urine pH 5.0 Bedside Urine Protein + 30 Bedside Urine Urobilinogen - Negative Bedside Urine Nitrite - Negative Bedside Urine Leukocytes +++ 500 Esterase MDM Narrative Medical decision making narrative: 78-year-old male with hematuria. Assessment was encouraging and patient is not having any difficulty urinating at this time. Baseline labs were within normal limits. Point of care urine dip was consistent with a UTI, positive blood and leuks. Will treat with Macrobid. Discussed plan of care that included drinking adequate amounts of water in order to flush out his bladder and facilitate antibiotic effectiveness. Discussed worsening symptoms that would necessitate a return visit with patient, to include inability to urinate, blood clots, etc. who verbalized understanding and was agreeable to course of action. <Valerio Hannah, - Last Filed: 11/28/23 12:53> Lab Data Labs: Lab Results 11/28/23 11/28/23 Range/Units 12:00 12:23 WBC 5.9 (4.5-11.0) X10^3/uL RBC 4.51 (4.5-5.9) X10^6/uL Hgb 14.4 (13.5-17.5) g/dL Hct 42.5 (41-53) % MCV 94.2 (80-100) fL MCH 32.0 (26-34) PG MCHC 33.9 (30-36) % RDW 15.6 H (11.6-14.8) % Plt Count 129 L (150-400) X10^3/uL Neut % (Auto) 63.2 (50-75) % Lymph % (Auto) 21.8 L (25-40) % Frontier % (Auto) 11.5 (3-14) % Eos % (Auto) 2.9 (2-4) % Baso % (Auto) 0.6 (0-2) % Neut # (Auto) 3700 (0280-4999) /uL Lymph # (Auto) 1300 (3095-4262) /uL Frontier # (Auto) 700 (0-900) /uL Eos # (Auto) 200 (0-450) /uL Baso # (Auto) 0 (0-100) /uL Sodium 140 (137-145) mmol/L Potassium 3.8 (3.4-5.1) mmol/L Chloride 107 (98-107) mmol/L Carbon Dioxide 26 (22-32) mmol/L BUN 17 (9-20) mg/dL Creatinine 0.79 (0.66-1.25) mg/dL Estimated GFR > 60 (>60) mL/min BUN/Creatinine Ratio 21.5 (6-22) Glucose 113 H (80-110) mg/dL Calcium 9.2 (8.4-10.2) mg/dL Urine RBC 30-100/hpf H (0-5/HPF) Urine WBC >100/hpf H (0-5/HPF) Ur Squamous Epith Cells None seen (0-5/HPF) Urine Bacteria Moderate (10-30) H (None) Ur Culture Indicated? Specimen cultured Vol Urine Centrifuged 10ml (spun) Urine Dip Bedside Urine Glucose 1000 mg/dl Bedside Urine Bilirubin - Negative Bedside Urine Ketone - Negative Urine Specific Marion 1.020 Bedside Urine Occult Blood +++ Bedside Urine pH 5.0 Bedside Urine Protein + 30 Bedside Urine Urobilinogen - Negative Bedside Urine Nitrite - Negative Bedside Urine Leukocytes +++ 500 Esterase Discharge Plan Departure Patient Disposition: Home Clinical Impression: Urinary tract infection Qualifiers: Urinary tract infection type: acute cystitis Hematuria presence: with hematuria Qualified Code(s): N30.01 - Acute cystitis with hematuria Hematuria Qualifiers: Hematuria type: gross Qualified Code(s): R31.0 - Gross hematuria Instructions: DI for Urinary Tract Infection (UTI), DI for Hematuria Activity Restrictions/Additional Instructions: *You have been diagnosed with a urinary tract infection. Your labs were all within normal limits and do not believe that the hematuria has significantly affected you. Analysis of your urine reveals that you have a urinary tract infection. This may be the cause for some of your bleeding. As we discussed, please make sure you are drinking plenty of water to flush out your bladder, which will also work well with your antibiotic therapy. For any worsening symptoms that include inability to urinate, blood clots, abdominal pain, etc. please return to the emergency room immediately. Otherwise, please follow-up with your family doctor or urologist as needed. *What to do: *Please continue to take your regular medications as directed. [ x] New medication prescriptions sent to your pharmacy: [[facility]] [ ] New medication written as a paper prescription [ ] No new medications given *Please follow up with your primary care provider in 2-3 days, call for an appointment. Let them know you were seen in the Emergency Department and that we ask that you be seen in follow up. We will electronically transmit a record of today's note if your PCP is in our system *If you do not have a primary care provider please contact the [facility] Resource line at [phone]. They will ask some questions about your medical history and help get you set up with a doctor in the community. ? Return to ER if you should have any new, worsening or concerning symptoms, such as worsening pain, severe headache, confusion, chest pain, difficulty breathing, fever greater than 101 F, shaking chills, persistent vomiting to the point that you cannot drink fluids, or other new or worsening symptoms. Prescriptions: New nitrofurantoin monohyd/m-cryst [Macrobid] 100 mg capsule 100 mg PO Q12H 7 Days Qty: 14 0RF Rx Instructions: must administer with a meal/food No Action levothyroxine 150 MCG tablet 150 mcg PO QAM Qty: 0 amlodipine 10 MG tablet 10 mg PO QDAY Qty: 90 3RF bupropion HCl [Wellbutrin XL] 150 MG tablet extended release 24 hr 150 mg PO QDAY Qty: 30 3RF escitalopram oxalate 10 mg tablet 10 mg PO DAILY atorvastatin 10 mg Tablet 10 mg PO QPM Eliquis 5 mg Tablet 5 mg PO BID Patient Comments: NEW MEDICATION FOR PATIENT. UNSURE OF STRENGTH furosemide 40 mg Tablet 40 mg PO DAILY naltrexone 50 mg Tablet 50 mg PO DAILY spironolactone 25 mg Tablet 25 mg PO DAILY isosorbide mononitrate 60 mg Tablet Extended Release 24 Hr 60 mg PO DAILY pantoprazole 40 mg Tablet,Delayed Release (Dr/Ec) 40 mg PO DAILY losartan 25 mg Tablet 25 mg PO DAILY empagliflozin 10 mg Tablet 10 mg PO BEDTIME Referrals: Miscellaneous,Doctor, MD [Primary Care Provider] - Stand Alone Forms: Patient Portal/API ED Sign-out <Valerio Hannah, DO - Last Filed: 11/28/23 12:53> Cosign ED Attending Cosignature Attestation: Dr Hannah Co-Sign Statement: I was available for consultation during this patient's emergency department visit. This chart is signed by myself for administrative purposes only. I did not have direct contact with this patient during this visit. They were seen independently by the [facility].
[2023-11-28 12:18] LABS: BUN Creatinine Ratio 21.5 (6-22); Blood Urea Nitrogen 17 mg/dL (9-20); Calcium 9.2 mg/dL (8.4-10.2); Carbon Dioxide 26 mmol/L (22-32); Chloride 107 mmol/L (98-107); Estimated Glomerular Filt Rate > 60 mL/min (>60); Glucose 113 mg/dL (80-110); HEMOLYSIS < 15 (0-50); Potassium 3.8 mmol/L (3.4-5.1); Sodium 140 mmol/L (137-145)
[2023-11-28 12:30] VITALS: PULSE 75; O2SAT 95
[2023-11-28 12:48] LABS: Bacteria Urine Moderate (10-30); Culture Indicated Urine Specimen Cultured; RBC Urine 30-100/HPF (0-5/HPF); Squamous Epithelial Cell Urine None Seen (0-5/HPF); Urine Volume 10mL (spun); WBC Urine >100/HPF (0-5/HPF)
[2023-11-28 13:00] VITALS: PULSE 70; O2SAT 92
== END 2023-11-28 13:05 | disposition home or self-care (01) ==
PROVIDERS: Emergency Medicine; Emergency Provider Registered Nurse
DX: N30.01 Acute cystitis with hematuria (principal); B95.2 Enterococcus as the cause of diseases classified elsewhere
CPT/HCPCS: 36415; 80048; 81003; 81015; 85025; 87077; 87086; 87186; 99283